=== PATIENT | male | born 1955 | race Caucasian/White ===

== ENCOUNTER 2018-07-08 08:31 | Observation (INO) | payer OTHER, SELFPAY ==
[2018-07-08 09:12] LABS: #Lymphocytes 1.1 thou/uL (1.20-3.40); #Monocytes 0.8 thou/uL (0.11-0.59); #Neutrophils 13.7 thou/uL (1.40-6.50); %Basophils 0.3 % (0.0-1.0); %Eosinophils 0.3 % (0.0-10.0); %Lymphocytes 7.2 % (21.0-51.0); %Neutrophils 87.2 % (42.0-75.0); Hemoglobin 15.7 g/dL (14.0-18.0); Mean Corpuscular HGB CONC 32.5 g/dL (32.0-36.0); Mean Corpuscular Volume 89.3 fL (78.0-98.0); Mean Platelet Volume 7.5 fL (7.4-10.4); Platelet Count 232 thou/uL (130-400); RBC Distribution Width 13.5 % (11.5-14.5); Red Blood Cell (RBC) Count 5.41 mill/uL (4.70-6.10); White Blood Cell (WBC) Count 15.7 thou/uL (4.8-10.8)
--- NOTE | 2018-07-08 09:19 | RAD ---
SINGLE VIEW OF THE CHEST: Comparison: 04-05-16 History: Chest pain that started last night with shortness of breath. FINDINGS: Single view of the chest shows a normal sized cardiomediastinal silhouette. There is no evidence of c onsolidation, mass, or pleural effusion. The bones are unremarkable. IMPRESSION: No evidence of acute cardiopulmonary disease. POS: [facility]
[2018-07-08 09:28] LABS: ALT (SGPT) 16 U/L (8-55); AST (SGOT) 15 U/L (5-34); Albumin 3.9 g/dL (3.4-4.8); Alkaline Phosphatase 93 U/L (40-150); Anion Gap 13 mmol/L (10-20); BUN (Urea Nitrogen) 10 mg/dL (8.4-25.7); Bilirubin, Total 1.8 mg/dL (0.2-1.2); Calc. Creatinine Clearance 0 mL/min (70-130); Calcium 9.4 mg/dL (7.8-10.44); Carbon Dioxide 28 mmol/L (23-31); Chloride 101 mmol/L (98-107); Estimated GFR-MDRD 84; Glucose 147 mg/dL (80-115); Potassium 4.5 mmol/L (3.5-5.1); Protein, Total 6.9 g/dL (5.8-8.1); Sodium 137 mmol/L (136-145)
[2018-07-08 09:31] LABS: CKMB 1.7 ng/mL (0-6.6); Troponin I Less than 0.010 ng/mL (< 0.028)
[2018-07-08] MEDS ORDERED: Azithromycin 250 MG TAB ONE (10:15)
[2018-07-08] MEDS ORDERED: cefTRIAXone\\ROCEPHIN 1 GM VIAL ONE (10:15)
[2018-07-08] MEDS ORDERED: Acetaminophen 325 MG TAB PO PRN (11:33)
[2018-07-08] MEDS ORDERED: Senokot 8.6 MG TAB PO PRN (11:33)
[2018-07-08] MEDS ORDERED: Nicotine 21 MG PATCH TD PRN (11:33)
[2018-07-08] MEDS ORDERED: Loperamide HCl 2 MG CAP PO PRN (11:33)
[2018-07-08] MEDS ORDERED: Chloraseptic Spray 180 ml Bottle PO PRN (11:33)
[2018-07-08] MEDS ORDERED: Ondansetron HCl/PF 4 MG/2 ML Vial IVP PRN (11:33)
[2018-07-08] MEDS ORDERED: Ondansetron ODT 4 MG TAB PO PRN (11:33)
[2018-07-08] MEDS ORDERED: Zolpidem Tartrate 5 MG TAB PO PRN (11:33)
[2018-07-08] MEDS ORDERED: Nitroglycerin 0.4 MG TAB (25 Tab Bottle) SL PRN (11:33)
[2018-07-08] MEDS ORDERED: Eucerin (Mineral Oil/Petrolatum,White) 30 gm Jar TOP PRN (11:33)
[2018-07-08] MEDS ORDERED: Loratadine 10 MG TAB PO PRN (11:33)
[2018-07-08] MEDS ORDERED: hydrALAZINE 20 MG/ML VIAL SLOW IVP PRN (11:33)
[2018-07-08] MEDS ORDERED: Sodium Chloride 0.65% Nasal 44 ML BOT EA NARE PRN (11:33)
[2018-07-08] MEDS ORDERED: Diabetic Tussin 200 MG/10 ML UDCUP PO PRN (11:33)
[2018-07-08] MEDS ORDERED: Mag-Al 1200 mg/1200 mg/30 ML UDCUP PO PRN (11:33)
[2018-07-08] MEDS ORDERED: Artificial Tears 18 DROP/0.9 ML EA EYE PRN (11:33)
[2018-07-08] MEDS ORDERED: HYDROcodone/Acetaminophen 5/325 mg Tablet PO PRN (11:33)
[2018-07-08] MEDS ORDERED: Milk Of Magnesia 30 ML UDCUP PO PRN (11:33)
[2018-07-08 11:56] LABS: Bilirubin Negative (Negative); Blood, Urine Negative (Negative); Clarity CLEAR (Clear); Glucose, Urine (Dipstick) Negative (Negative); Leukocyte Negative (Negative); Nitrite Negative (Negative); Protein, Urine (Dipstick) Negative (Neg-Trace); Specific Gravity, Urine 1.015 (1.002-1.036)
--- NOTE | 2018-07-08 11:59 | HP ---
PRIMARY CARE PHYSICIAN: DILAN [facility] REASON FOR ADMISSION: Acute bronchitis. HISTORY OF PRESENT ILLNESS: A 62-year-old male, who has underlying history of hypertension, dyslipid emia, coronary artery disease as well as ongoing tobacco abuse disorder, who presented to emergency r o for evaluation of chest pain and shortness of breath. The patient reports that yesterday at 3:00 p.m. he was having chest pain, which was radiating to back, associated with cough and shortness of b reath. He took nitroglycerin that helped his front chest discomfort, but back discomfort did not imp rove. He was having increasing cough for the last 2 days. He reports that he does have smoker's rel ated to cough on and off basis, but for last 2 days, he is coughing more. He was also having increas ing shortness of breath. He does have chronic dyspnea on exertion, but for last 2 days, he was feeli ng more short of breath. Last night when he was lying, at that time, he was having chest discomfort which was predominantly associated with cough. He was feeling comfortable in flat position, but on t he right lateral or left lateral position was making him more short of breath. He was feeling his no se was stuffed up and his sinus was stuffed up. He was requiring deep breathing because he was feeli ng air hunger. He denies any dizziness, palpitation. He was feeling subjective feverish. He denies any recent sick exposure or recent travel. He continued to smoke about 1 pack per day. Today in the emergency room, patient had chest x-ray, which showed early emphysematous changes withou t any acute process. He was found with leukocytosis. His cardiac enzyme was negative. Patient is b eiaraceli admitted for chest pain and acute bronchitis. He denies any UTI symptoms. He denies any constipation, diarrhea, melena, hematochezia. He denies a ny flu-like illness. REVIEW OF SYSTEMS: The following complete review of systems was negative, unless otherwise mentioned in the HPI or below: Constitutional: Weight loss or gain, ability to conduct usual activities. Skin: Rash, itching. Eyes: Double vision, pain. ENT/Mouth: Nose bleeding, neck stiffness, pain, tenderness. Cardiovascular: Palpitations, dyspnea on exertion, orthopnea. Respiratory: Shortness of breath, wheezing, cough, hemoptysis, fever or night sweats. Gastrointestinal: Poor appetite, abdominal pain, heartburn, nausea, vomiting, constipation, or diarr hea. Genitourinary: Urgency, frequency, dysuria, nocturia. Musculoskeletal: Pain, swelling. Neurologic/Psychiatric: Anxiety, depression. Allergy/Immunologic: Skin rash, bleeding tendency. Please see my HPI for pertinent positive and negative. All other review of system reviewed and negat winter except as mentioned in the HPI. PAST MEDICAL HISTORY: Hypertension, dyslipidemia, coronary artery disease treated with stent, tobacc o abuse disorder. PAST SURGICAL HISTORY: Cardiac catheterization with stent placement to left anterior descending. PAST PSYCHIATRIC HISTORY: Reviewed and negative. SOCIAL HISTORY: The patient drinks alcohol socially. He smokes about 1 pack per day. He was a heav y smoker before, but since cardiac catheterization and stent placement, he cut down to 1 pack per day . He is smoking for last 30 years. He denies any other illicit drug abuse. FAMILY HISTORY: No strong family history of premature stroke or cancer. Family history is strongly positive for coronary artery disease. One brother from congestive heart failure. ALLERGIES: No known drug allergy. CURRENT HOME MEDICATIONS: Plavix 75 mg p.o. daily, lisinopril 10 mg p.o. daily, Lipitor 40 mg p.o. a t bedtime, and Coreg 6.25 mg p.o. b.i.d. PHYSICAL EXAMINATION: VITAL SIGNS: On arrival, blood pressure 110/60, pulse 85, respiratory rate 18, temperature 97.5, sat uration 93% on room air, weight 77.1 kilograms. GENERAL: Patient is currently alert, awake, no obvious acute distress on room air. HEENT: Head: Normocephalic, atraumatic. Eyes: Pupils round, reactive to light. Extraocular muscl e intact. ENT: Oropharynx within normal limits. Moist mucous membranes. No oral lesion, no pharyn geal erythema, no exudate. NECK: Supple, no JVD, no thyromegaly, no carotid bruit, no jugular venous distention. LUNGS: Air entry reduced with scattered coarse breath sounds noted. No accessory muscles of respira tion in use. CARDIAC: S1 and S2, regular. No murmur, no gallop, no rub. ABDOMEN: Soft, bowel sounds present, nontender, nondistended. No organomegaly, no mass, no suprapub ic tenderness. BACK: Unremarkable, no CVA tenderness. EXTREMITIES: Upper extremity: Passive movement of all joints are normal. Lower extremities: No ed chance. Good peripheral pulsation, no calf tenderness. SKIN: No skin rash. HEMATOLOGICAL: No lymphadenopathy. PSYCHIATRIC: Normal affect. NEUROLOGIC: Nonfocal examination. SIGNIFICANT LABORATORY DATA: teletypesetter monitor showing normal sinus rhythm. EKG showing normal sinu s rhythm without any acute ischemic changes. Chest x-ray showing no acute cardiopulmonary process. CBC: WBC 15.7, hemoglobin 15.7, platelet 232 with left shift. BMP shows sodium 137, potassium 4.5, chloride 101, carbon dioxide 28, BUN 10, creatinine 0.91, glucose 147, calcium 9.4. LFT: AST 15, AL T 16, alkaline phosphatase 93, albumin 3.9, CK-MB 1.7, troponin I less than 0.010. ASSESSMENT AND PLAN: 1. Chest pain and dyspnea, most likely patient's clinical presentation consistent with acute bronchi tis that explains current patient's presentation. Given patient has history of coronary artery disea se with stent. This patient will require observation to telemetry floor. We will do serial cardiac enzymes x3 to rule out acute coronary syndrome. If cardiac enzyme remains negative, then we will not pursue further investigation while in hospital, but if troponin is abnormal, then we will consider d oing stress test if needed. We will check lipid profile for risk stratification. Healthy lifestyle measure discussed with the patient. 2. Acute bronchitis. Current patient's presentation is consistent with acute bronchitis. We will t reat him with Solu-Medrol 40 mg IV q.6 hourly, DuoNeb therapy q.6 hourly, empiric antibiotic therapy with Rocephin 1 gram and azithromycin 500 mg, Mucinex 600 mg twice daily. Upon discharge, we will pr escribe oral levofloxacin. 3. Tobacco abuse disorder. Smoking cessation counseling given. Healthy lifestyle measures discusse d with the patient. We will offer nicotine replacement while in hospital. 4. Coronary artery disease. We will continue, aspirin 81 mg p.o. daily, Plavix 75 mg p.o. daily, Co reg 6.25 mg p.o. b.i.d., lisinopril 10 mg p.o. daily. 5. Dyslipidemia. Check lipid profile tomorrow and continue Lipitor 40 mg p.o. at bedtime. 6. Hypertension, currently well controlled. Continue Coreg 6.25 mg p.o. b.i.d. and lisinopril 10 mg p.o. daily. 7. Deep venous thrombosis prophylaxis not needed because we are expecting discharge in 24 hours. 8. Gastrointestinal prophylaxis, Pepcid 20 mg p.o. b.i.d. 9. Code status: The patient is FULL CODE. Patient does not have any surrogate decision maker. 10. Disposition plan based on clinical course, likely within 24 hours. Plan of care discussed with the patient in detail. EMERGENCY ROOM COURSE: In our hospital, the patient is given Rocephin, azithromycin, DuoNeb therapy, and aspirin in the emergency room.
[2018-07-08 12:21] LABS: Troponin I Less than 0.010 ng/mL (< 0.028)
[2018-07-08 12:22] VITALS: BMI 24.3
[2018-07-08 15:28] LABS: Troponin I Less than 0.010 ng/mL (< 0.028)
[2018-07-08] MEDS: Carvedilol 6.25 MG TAB PO SCH (20:46)
[2018-07-08] MEDS: guaiFENesin ER 600 MG TAB PO SCH (20:46)
[2018-07-08] MEDS: Famotidine 20 MG TAB PO SCH (20:51)
[2018-07-08] MEDS ORDERED: Atorvastatin Calcium 40 MG TAB PO SCH (21:00)
[2018-07-09 05:03] LABS: Anion Gap 10 mmol/L (10-20); BUN (Urea Nitrogen) 13 mg/dL (8.4-25.7); Calc. Creatinine Clearance 96 mL/min (70-130); Carbon Dioxide 24 mmol/L (23-31); Cardiac Risk 2.7 (Less than 4.5); Chloride 107 mmol/L (98-107); Cholesterol 120 mg/dl (< 200 Desired); Estimated GFR-MDRD Greater than 90; Glucose 147 mg/dL (80-115); HDL Cholesterol 44 mg/dL (>60 Neg Risk); LDL Cholesterol, Calculated 68 mg/dL; Potassium 3.6 mmol/L (3.5-5.1); Sodium 137 mmol/L (136-145); Triglycerides 38 mg/dL (Less than 150)
[2018-07-09 06:22] LABS: Band 17 % (5-11); Hemoglobin 14.6 g/dL (14.0-18.0); Lymphocytes 7 % (21-51); MDiff Complete? YES; Mean Corpuscular HGB CONC 33.8 g/dL (32.0-36.0); Mean Corpuscular Hemoglobin 29.9 pg (27.0-31.0); Mean Corpuscular Volume 88.5 fL (78.0-98.0); Mean Platelet Volume 7.8 fL (7.4-10.4); Monocytes 1 % (0-10); Neutrophil 75 % (42-75); PLT Morphology Comment Appears Adequate; Platelet Count 260 thou/uL (130-400); RBC Distribution Width 13.2 % (11.5-14.5); RBC Morphology Normal; Red Blood Cell (RBC) Count 4.88 mill/uL (4.70-6.10); White Blood Cell (WBC) Count 16.4 thou/uL (4.8-10.8)
[2018-07-09 08:23] VITALS: BP 144/65; TEMP 98.3
[2018-07-09] MEDS: Famotidine 20 MG TAB PO SCH (08:29)
[2018-07-09] MEDS: Carvedilol 6.25 MG TAB PO SCH (08:29)
[2018-07-09] MEDS: guaiFENesin ER 600 MG TAB PO SCH (08:29)
[2018-07-09] MEDS ORDERED: Clopidogrel Bisulfate 75 MG TAB PO SCH (09:00)
[2018-07-09] MEDS ORDERED: Lisinopril 10 MG TAB PO SCH (09:00)
[2018-07-09] MEDS ORDERED: Azithromycin 500 MG in Sodium Chloride 0.9% 250 ML 250 ML IVPB SCH (10:00)
--- NOTE | 2018-07-09 10:50 | PDOC.PN ---
- Subjective Encounter Start Date: 07/09/18 Encounter Start Time: 07:20 -: old records requested/rev Patient seen and examined. No new complaints. No overnight events - Objective Resuscitation Status: Resuscitation Status FULL:Full Resuscitation MAR Reviewed: Yes Vital Signs & Weight: Vital Signs (12 hours) Temp Pulse Resp BP BP Pulse Ox 07/09/18 08:29 144/65 H 07/09/18 07:48 98.3 F 63 16 144/65 H 92 L 07/09/18 07:30 98.2 F 67 14 07/09/18 06:52 67 14 93 L 07/09/18 04:07 98.2 F 55 L 16 91/48 L 92 L 07/09/18 00:22 63 12 Weight Weight 160 lb 6.4 oz I&O: 07/08/18 07/09/18 07/10/18 06:59 06:59 06:59 Intake Total 840 Output Total 1900 Balance -1060 Result Diagrams: 07/09/18 04:35 07/09/18 04:35 EKG Reviewed by me: Yes Phys Exam - Physical Examination Constitutional: NAD HEENT: PERRLA, moist MMs, sclera anicteric Neck: no JVD, supple Respiratory: no wheezing, no rales, no rhonchi Cardiovascular: RRR, no significant murmur, no rub Gastrointestinal: soft, non-tender, no distention, positive bowel sounds Musculoskeletal: no edema, pulses present Neurological: non-focal, normal sensation, moves all 4 limbs Psychiatric: normal affect, A&O x 3 Skin: no rash, normal turgor Dx/Plan (1) Acute bronchitis Code(s): J20.9 - ACUTE BRONCHITIS, UNSPECIFIED Status: Acute (2) CAD (coronary artery disease) Code(s): I25.10 - ATHSCL HEART DISEASE OF [place] CORONARY ARTERY W/O ANG PCTRS Status: Chronic Comment: (3) COPD (chronic obstructive pulmonary disease) Status: Chronic (4) Dyslipidemia Code(s): E78.5 - HYPERLIPIDEMIA, UNSPECIFIED Status: Chronic Comment: (5) Hypertension Code(s): I10 - ESSENTIAL (PRIMARY) HYPERTENSION Status: Chronic (6) Tobacco abuse Code(s): Z72.0 - TOBACCO USE Status: Chronic Comment: - Plan cont current plan of care, continue antibiotics, respiratory therapy * acs ruled out * treat bronchitis * counselled to quit smoking * medication reviewed as below * symptomatic treatment * discharge to home. Review of Systems - Review of Systems ENT: negative: Ear Pain, Ear Discharge, Nose Pain, Nose Discharge, Nose Congestion, Mouth Pain, Mouth Swelling, Throat Pain, Throat Swelling, Other Respiratory: negative: Cough, Dry, Shortness of Breath, Hemoptysis, SOB with Excertion, Pleuritic Pain, Sputum, Wheezing Cardiovascular: negative: chest pain, palpitations, orthopnea, paroxysmal nocturnal dyspnea, edema, light headedness, other Gastrointestinal: negative: Nausea, Vomiting, Abdominal Pain, Diarrhea, Constipation, Melena, Hematochezia, Other Genitourinary: negative: Dysuria, Frequency, Incontinence, Hematuria, Retention , Other Musculoskeletal: negative: Neck Pain, Shoulder Pain, Arm Pain, Back Pain, Hand Pain, Leg Pain, Foot Pain, Other Skin: negative: Rash, Lesions, Umesh, Bruising, Other - Medications/Allergies Allergies/Adverse Reactions: Allergies Allergy/AdvReac Type Severity Reaction Status Date / Time No Known Allergies Allergy Verified 07/08/18 12:20 Medications: Current Medications Acetaminophen (Tylenol) 650 mg PO Q4H PRN PRN Reason: Headache/Fever or Pain Hydrocodone Bitart/Acetaminophen ([place] 5/325) 1 tab PO Q4H PRN PRN Reason: Moderate Pain (4-6) Al Hydroxide/Mg Hydroxide (Maalox) 30 ml PO Q6H PRN PRN Reason: Heartburn or Indigestion Albuterol/Ipratropium (Duoneb) 3 ml NEB [id number] [facility] Last Admin: 07/09/18 06:52 Dose: 3 ml Artificial Tears (Tears Naturale) 0 drop EA EYE PRN PRN PRN Reason: Dry Eyes Aspirin (Aspirin Chewable) 81 mg PO DAILY [facility] Last Admin: 07/09/18 08:29 Dose: 81 mg Atorvastatin Calcium (Lipitor) 40 mg PO HS [facility] Last Admin: 07/08/18 20:46 Dose: 40 mg Carvedilol (Coreg) 6.25 mg PO BID [facility] Last Admin: 07/09/18 08:29 Dose: 6.25 mg Clopidogrel Bisulfate (Plavix) 75 mg PO QAM [facility] Last Admin: 07/09/18 08:30 Dose: 75 mg Famotidine (Pepcid) 20 mg PO BID [facility] Last Admin: 07/09/18 08:29 Dose: 20 mg Guaifenesin (Mucinex) 600 mg PO Q12HR [facility] Last Admin: 07/09/18 08:29 Dose: 600 mg Guaifenesin (Robitussin Sf) 200 mg PO Q4H PRN PRN Reason: Cough Hydralazine HCl (Apresoline) 10 mg SLOW IVP Q4H PRN PRN Reason: Systolic BP > 180 Azithromycin 500 mg/ Sodium (Chloride) 250 mls @ 250 mls/hr IVPB 1000 [facility] Last Admin: 07/09/18 09:13 Dose: 250 mls Ceftriaxone Sodium 1 gm/ (Sodium Chloride) 100 mls @ 200 mls/hr IVPB 1100 [facility] Last Admin: 07/09/18 10:08 Dose: 100 mls Lisinopril (Zestril) 10 mg PO DAILY [facility] Last Admin: 07/09/18 08:29 Dose: 10 mg Loperamide HCl (Imodium) 2 mg PO PRN PRN PRN Reason: Diarrhea/Loose Stools Loratadine (Claritin) 10 mg PO DAILYPRN PRN PRN Reason: Sinus Symptoms Magnesium Hydroxide (Milk Of Magnesium) 30 ml PO DAILYPRN PRN PRN Reason: Constipation Methylprednisolone Sodium Succinate (Solu-Medrol) 40 mg IVP Q6HR [facility] Last Admin: 07/09/18 06:14 Dose: 40 mg Mineral Oil/White Petrolatum (Eucerin Cream) 0 gm TOP BIDPRN PRN PRN Reason: Dry Skin Nicotine (Nicoderm Patch) 21 mg TD Q24HR PRN PRN Reason: Smoking Cessation Nitroglycerin (Nitrostat) 0.4 mg SL Q5MIN PRN PRN Reason: Chest Pain Ondansetron HCl (Zofran Odt) 4 mg PO Q6H PRN PRN Reason: Nausea/Vomiting Ondansetron HCl (Zofran) 4 mg IVP Q6H PRN PRN Reason: Nausea/Vomiting Phenol (Chloraseptic [place] 180 Ml Bot) 0 ml PO PRN PRN PRN Reason: Sore Throat Senna (Senokot) 2 tab PO HSPRN PRN PRN Reason: Constipation Sodium Chloride ([place] Nasal [place] 0.65%) 0 ml EA NARE QIDPRN PRN PRN Reason: Nasal Congestion Zolpidem Tartrate (Ambien) 5 mg PO HSPRN PRN PRN Reason: Insomnia
[2018-07-09] MEDS ORDERED: cefTRIAXone\\ROCEPHIN 1 GM in Sodium Chloride 0.9% 100 ML IVPB SCH (11:00)
--- NOTE | 2018-07-10 14:50 | DIS ---
DATE OF ADMISSION: 07/08/2018 DATE OF DISCHARGE: 07/09/2018 PRIMARY CARE PHYSICIAN: DILAN Lugo DISCHARGE DISPOSITION: Home. PRIMARY DISCHARGE DIAGNOSIS: Acute bronchitis. SECONDARY DISCHARGE DIAGNOSES: Tobacco abuse disorder, hypertension, dyslipidemia, chronic obstructi ve pulmonary disease, coronary artery disease. PRIMARY PROCEDURE AND OPERATION: None. RADIOLOGICAL INVESTIGATION: Chest x-ray was unremarkable. SIGNIFICANT LABORATORY DATA: WBC 16.4, hemoglobin 14.6, platelet 260. Sodium 137, potassium 3.6, cr eatinine 0.81, LDL 68. Cardiac enzymes negative x3. LFT normal. Urinalysis normal. Blood culture negative. DISCHARGE MEDICATIONS: Nitroglycerin 0.4 mg sublingual p.r.n. for chest pain, Ventolin inhaler 2 puf fs q.6 hourly p.r.n., Mucinex 600 mg twice daily for 7 days, Lipitor 40 mg p.o. at bedtime, Coreg 6.2 5 mg p.o. b.i.d., Plavix 75 mg p.o. daily, Pepcid 20 mg p.o. b.i.d., Levaquin 750 mg p.o. daily for 7 days, lisinopril 10 mg p.o. daily, prednisone 20 mg p.o. b.i.d. for 7 days, Florastor 250 mg p.o. da mary. CONTRAINDICATIONS: None. CODE STATUS: FULL CODE. INPATIENT CONSULTANTS: None. ALLERGIES: No known drug allergy. DISCHARGE PLAN: Post hospital, the patient will follow up with primary care physician in 1 week. HOSPITAL COURSE: A 62-year-old male with above-mentioned medical problem who was admitted by me. Pl ease see my HPI for further detail. The patient was having upper respiratory symptoms, which was pro gressed to lower respiratory symptoms with cough, increasing shortness of breath and wheezing. He barraza d continuous smoking as well. The patient was evaluated in the emergency room, he was saturating nor mal. His chest x-ray was normal. He was diagnosed with acute bronchitis. We admitted him to medica l floor. We treated him with DuoNeb, Dulera, Mucinex, empiric antibiotic therapy and Solu-Medrol. N ext day, the patient had significant improvement in his condition. All above-mentioned medication wa s prescribed on discharge. The patient was seen and examined on the day of discharge. Please see pr lisa note from that day. Overall, the patient is medically stable for discharge.
--- NOTE | 2018-07-12 21:46 | EKG ---
Test Reason : Blood Pressure : / mmHG Vent. Rate : 084 BPM Atrial Rate : 084 BPM P-R Int : 184 ms QRS Dur : 092 ms QT Int : 364 ms P-R-T Axes : 079 071 079 degrees QTc Int : 430 ms Normal sinus rhythm Anterior infarct , age undetermined Abnormal ECG Confirmed by WILMER CONNELL M.D. ([id number]), material expeditor LUIS ANDERSON ([id number] on 07/12/2018 9:46:21 PM Referred By: Confirmed By:WILMER CONNELL M.D.
== END 2018-07-09 11:26 | disposition home or self-care (01) ==
LOC: ERS 08:31 → 2SW 12:16
PROVIDERS: ADMIT Internal Medicine; ATTEND Internal Medicine
DX: J20.9 Acute bronchitis, unspecified (principal); J44.0 Chronic obstructive pulmonary disease with (acute) lower respiratory infection; E78.5 Hyperlipidemia, unspecified; I10 Essential (primary) hypertension; I25.10 Atherosclerotic heart disease of native coronary artery without angina pectoris; F17.210 Nicotine dependence, cigarettes, uncomplicated; Z79.899 Other long term (current) drug therapy; Z79.02 Long term (current) use of antithrombotics/antiplatelets
CPT/HCPCS: 36415; 71045; 80048; 80053; 80061; 81003; 82553; 83605; 84484; 85025; 87040; 93005; 94640; 96374; 96375; 96376; G0378; J0456; J0696; J2920; J7050; J7620

== ENCOUNTER 2019-12-08 08:05 | Inpatient (IN) | payer MEDICARE, SELFPAY ==
[2019-12-08] MEDS ORDERED: Albuterol Sulfate 2.5 mg/3 ml Neb ONE (08:17)
[2019-12-08 08:27] LABS: Actual Bicarbonate (HCO3a) 30.7 mEq/L (22-28); Analyzer IN Cardio ER; Base Excess (BEa) 3.7 mEq/L (-2.0 to +3.0); CO2 Tension 54.9 mmHg (35.0-45.0); Hemoglobin (Hb) 16.3 g/dL (14.0-18.0); O2 Tension (PaO2) 64.7 mmHg (> 80.0); Potassium - ABG Lab 4.07 mmol/L (3.70-5.30); pH, Arterial 7.37 (7.35-7.45)
[2019-12-08 08:28] LABS: ALV-art Gradient 16.405 (0-20); Puncture Site LRA
--- NOTE | 2019-12-08 08:52 | RAD ---
CHEST 1 VIEW PORTABLE: Date: 12/08/2019 HISTORY: Dyspnea, difficulty breathing, cough. COMPARISON: 07/08/2018. FINDINGS: Increased bronchovascular markings bilaterally. Heart size is normal. No confluent pneumonia, overt e roshan, or pleural effusion. IMPRESSION: No acute intrathoracic disease. Stable increased bronchovascular markings. POS: [facility]
[2019-12-08] MEDS ORDERED: Magnesium 2 GM/50 ML BAG (IN WATER) ONE (08:59)
[2019-12-08] MEDS ORDERED: Dexamethasone 10 MG/ML VIAL ONE (08:59)
[2019-12-08 09:01] LABS: #Basophils 0.1 thou/uL (0.0-0.2); #Eosinphils 0.1 thou/uL (0.0-0.7); #Lymphocytes 1.3 thou/uL (1.20-3.40); #Monocytes 0.9 thou/uL (0.11-0.59); #Neutrophils 7.9 thou/uL (1.40-6.50); %Basophils 0.5 % (0.0-1.0); %Eosinophils 1.3 % (0.0-10.0); %Lymphocytes 12.3 % (21.0-51.0); %Monocytes 8.7 % (0.0-10.0); %Neutrophils 77.2 % (42.0-75.0); Hemoglobin 15.7 g/dL (14.0-18.0); Mean Corpuscular HGB CONC 32.3 g/dL (32.0-36.0); Mean Corpuscular Hemoglobin 28.9 pg (27.0-31.0); Mean Corpuscular Volume 89.6 fL (78.0-98.0); Platelet Count 264 thou/uL (130-400); RBC Distribution Width 13.1 % (11.5-14.5); Red Blood Cell (RBC) Count 5.42 mill/uL (4.70-6.10); White Blood Cell (WBC) Count 10.2 thou/uL (4.8-10.8)
[2019-12-08 09:15] LABS: ALT (SGPT) 14 U/L (8-55); AST (SGOT) 14 U/L (5-34); Albumin 3.8 g/dL (3.4-4.8); Alkaline Phosphatase 90 U/L (40-110); Anion Gap 13 mmol/L (10-20); BUN (Urea Nitrogen) 8 mg/dL (8.4-25.7); Bilirubin, Total 1.6 mg/dL (0.2-1.2); CK (CPK) 77 U/L (30-200); Calc. Creatinine Clearance 0 mL/min (70-130); Calcium 9.2 mg/dL (7.8-10.44); Carbon Dioxide 29 mmol/L (23-31); Chloride 100 mmol/L (98-107); Estimated GFR-MDRD Greater than 90; Globulin 2.5 g/dL (2.4-3.5); Glucose 98 mg/dL (80-115); Lipase 8 U/L (8-78); Potassium 4.9 mmol/L (3.5-5.1); Protein, Total 6.3 g/dL (5.8-8.1); Sodium 137 mmol/L (136-145)
[2019-12-08 10:21] LABS: Bilirubin Negative (Negative); Blood, Urine Negative (Negative); Clarity Clear (Clear); Glucose, Urine (Dipstick) Normal (Negative); Leukocyte Negative Leu/uL (Negative); Nitrite Negative (Negative); Protein, Urine (Dipstick) Negative (Neg-Trace); Urobilinogen 12 mg/dL (Less than 2)
[2019-12-08] MEDS ORDERED: Acetaminophen 325 MG TAB PO PRN (12:01)
[2019-12-08] MEDS ORDERED: HYDROcodone/Acetaminophen 5/325 mg Tablet PO PRN (12:01)
[2019-12-08] MEDS ORDERED: Senokot S 8.6-50 MG TAB PO PRN (12:01)
[2019-12-08] MEDS ORDERED: Bisacodyl 10 MG SUPP PR PRN (12:01)
[2019-12-08] MEDS ORDERED: Guaifenesin DM 100-10/5 ML UDCUP PO PRN (12:01)
[2019-12-08] MEDS ORDERED: Ondansetron PF 4 MG/2 ML Vial IVP PRN (12:01)
[2019-12-08] MEDS ORDERED: Sodium Chloride 0.9% 1,000 ML IV SCH (12:01)
[2019-12-08 13:33] VITALS: BMI 22.0
[2019-12-08] MEDS: methylPREDNISolone Sod Succ 40 MG VIAL IVP SCH ×2 (14:26→18:08)
--- NOTE | 2019-12-08 16:57 | HP ---
REASON FOR ADMISSION: Acute respiratory failure with hypoxia, acute COPD exacerbation. HISTORY OF PRESENTING ILLNESS: The patient gives history of having cough, cold , and shortness of breath. He has cough with expectoration of clear sputum. All of these symptoms were there for 2 weeks. He has been having some sinus drainage as well , which is stimulating his cough badly. No fever at home. No complaints of palpitations or PND. Has some chest discomfort due to coughing. PAST MEDICAL AND SURGICAL HISTORY: History of coronary artery disease with prior stent placed 4 years back, hypertension, dyslipidemia. No other surgeries. CURRENT MEDICATIONS: The patient is on; 1. Lisinopril 10 mg daily. 2. Atorvastatin 40 mg p.o. at bedtime. 3. Coreg 6.25 mg twice daily. ALLERGIES: THE PATIENT IS ALLERGIC TO , BUT HE IS NOT ALLERGIC TO PENICILLINS. PERSONAL HISTORY: The patient smokes 1 pack a day. He states he has come down from 2 packs to 1 pack. He has smoked for nearly 40 years or more. Does not abuse alcohol or drugs. Lives with his . FAMILY HISTORY: Both parents in their 60s. Mother had history of coronary artery disease and CHF. Father from complications of lung collapse and associated issues. CODE STATUS: Full. Power of litigation attorney is his . REVIEW OF SYSTEMS: CONSTITUTIONAL: Negative for weight loss or gain, ability to conduct usual activities. SKIN: Negative for rash, itching. EYES: Negative for double vision, pain. ENT/MOUTH: Negative for nose bleeding, neck stiffness, pain, tenderness. CARDIOVASCULAR: Negative for palpitations, dyspnea on exertion, orthopnea. RESPIRATORY: Negative for shortness of breath, wheezing, cough, hemoptysis, fever or night sweats. GASTROINTESTINAL: Negative for poor appetite, abdominal pain, heartburn, nausea , vomiting, constipation, or diarrhea. GENITOURINARY: Negative for urgency, frequency, dysuria, nocturia. MUSCULOSKELETAL: Negative for pain, swelling. NEUROLOGIC/PSYCHIATRIC: Negative for anxiety, depression. ALLERGY/IMMUNOLOGIC: Negative for skin rash, bleeding tendency. PHYSICAL EXAMINATION: GENERAL: The patient is a 64-year-old male who is currently not in any acute distress. VITAL SIGNS: Blood pressure 186/80 on arrival, pulse 74 per minute, respiratory rate 24 per minute, temperature 98.5 degrees Fahrenheit, saturating 94% on 2 L nasal cannula. NECK: Supple. No elevated JVD. HEENT: Eyes; extraocular muscles intact. Pupils reacting to light. Oral cavity; mucous membranes are moist. No exudates or congestion. CARDIOVASCULAR SYSTEM: S1 and S2 heard. Regular rhythm. RESPIRATORY SYSTEM: Air entry 1+ bilateral. Scattered wheezes plus bilateral. ABDOMEN: Soft. Bowel sounds heard. No tenderness, rigidity, or guarding. EXTREMITIES: No peripheral edema or calf tenderness. VASCULAR SYSTEM: Peripheral pulses 1+ bilateral. No ischemic ulcerations or gangrene. CENTRAL NERVOUS SYSTEM: No gross focal deficits noted. The patient is alert, awake, and oriented well. PSYCHIATRIC SYSTEM: The patient's mood is euthymic. No hallucinations or delusions. LABORATORY DATA: Chest x-ray done shows no acute infiltrate. Influenza A and B antigens are negative. White count of 10, H and H of 15 and 48, platelet count 264 with 77% neutrophils, MCV is 89. Blood gas done shows a pH of 7.37, pCO2 of 54 , PO2 of 64, bicarb is 30 on the blood gas. Serum bicarb 29, BUN 8, creatinine 0.7. AST, ALT, and alkaline phosphatase within normal limits. First set of troponin is negative. BNP is 43. EKG done shows normal sinus rhythm at 77 beats per minute. There is poor R-wave progression seen. CLINICAL IMPRESSION AND PLAN: The patient will be admitted to medical floor for acute chronic obstructive pulmonary disease exacerbation with acute respiratory failure with hypercarbia and hypoxia. He is currently saturating well on 2 L nasal cannula. He will be on DuoNeb q.6 hourly, Solu-Medrol 40 mg IV q.6 hourly, and empiric Ceftin 250 mg twice daily. We will continue aspirin and Lipitor as before. We will also continue his Coreg and lisinopril as before. He will be given a liter of normal saline at 100 mL per hour to better help expectorate sputum. We will also consult Dr. Sena for Pulmonology. The patient states his monthly premium for Medicare is 500 and has not applied for the same. The patient likely will need to speak to Financial Services representatives here to help him apply for insurance. He is 64 years of age and states he has worked all his life. Job ID: [id number] [facility]
[2019-12-08] MEDS: Carvedilol 6.25 MG TAB PO SCH (18:06)
[2019-12-08] MEDS: Arformoterol 15 MCG/2 ML NEB NEB SCH (18:14)
[2019-12-08] MEDS: Famotidine 20 MG TAB PO SCH (20:03)
[2019-12-08] MEDS: Cefuroxime Axetil 250 MG TAB PO SCH (20:04)
[2019-12-08] MEDS: Atorvastatin Calcium 40 MG TAB PO SCH (20:04)
[2019-12-08] MEDS: guaiFENesin ER 600 MG TAB PO SCH (20:04)
[2019-12-09] MEDS: methylPREDNISolone Sod Succ 40 MG VIAL IVP SCH ×4 (00:31→17:12)
[2019-12-09 06:16] LABS: #Lymphocytes 0.9 thou/uL (1.20-3.40); #Monocytes 0.4 thou/uL (0.11-0.59); #Neutrophils 12.7 thou/uL (1.40-6.50); %Basophils 0.1 % (0.0-1.0); %Lymphocytes 6.2 % (21.0-51.0); %Monocytes 2.9 % (0.0-10.0); %Neutrophils 90.8 % (42.0-75.0); Hemoglobin 14.6 g/dL (14.0-18.0); Mean Corpuscular HGB CONC 32.8 g/dL (32.0-36.0); Mean Corpuscular Hemoglobin 29.4 pg (27.0-31.0); Mean Corpuscular Volume 89.7 fL (78.0-98.0); Mean Platelet Volume 7.9 fL (7.4-10.4); Platelet Count 259 thou/uL (130-400); RBC Distribution Width 12.9 % (11.5-14.5); Red Blood Cell (RBC) Count 4.97 mill/uL (4.70-6.10)
[2019-12-09 06:30] LABS: Anion Gap 8 mmol/L (10-20); BUN (Urea Nitrogen) 13 mg/dL (8.4-25.7); Calc. Creatinine Clearance 90 mL/min (70-130); Calcium 8.8 mg/dL (7.8-10.44); Carbon Dioxide 25 mmol/L (23-31); Chloride 106 mmol/L (98-107); Estimated GFR-MDRD Greater than 90; Glucose 153 mg/dL (80-115); Potassium 4.3 mmol/L (3.5-5.1); Sodium 135 mmol/L (136-145)
[2019-12-09] MEDS: Arformoterol 15 MCG/2 ML NEB NEB SCH ×2 (07:28→17:57)
[2019-12-09] MEDS: Cefuroxime Axetil 250 MG TAB PO SCH ×2 (09:00→21:11)
[2019-12-09] MEDS: Enoxaparin Sodium 40 MG/0.4 ML SYRINGE SC SCH (09:00)
[2019-12-09] MEDS: guaiFENesin ER 600 MG TAB PO SCH ×2 (09:00→21:11)
[2019-12-09] MEDS: Carvedilol 6.25 MG TAB PO SCH ×2 (09:00→17:13)
[2019-12-09] MEDS: Famotidine 20 MG TAB PO SCH ×2 (09:01→21:11)
[2019-12-09] MEDS: Lisinopril 10 MG TAB PO SCH (09:01)
--- NOTE | 2019-12-09 12:47 | CON ---
DATE OF CONSULTATION: HISTORY OF PRESENT ILLNESS: Dejon Pemberton is a 64-year-old male, followed by Naila Oconnor. 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 He denies having shortness of breath prior to this, and has never had any type of episodes that would lead to hospitalization. 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 He was told when he was young man that he had asthma. He was premature and had a pneumonia when he was young as well. He presented with complaints of two weeks of cough, chest congestion, and shortness of breath. He says he is feeling better. PAST MEDICAL HISTORY: Remarkable for; 1. Coronary artery stenting. 2. Hypertension. 3. Lipid disorder. CURRENT MEDICATIONS: Prior to admission, he was on; 1. Lisinopril. 2. Atorvastatin. 3. Coreg. SOCIAL HISTORY: He is a pack-a-day smoker. He used to smoke two packs a day. He is not a daily drinker. ALLERGIES: HE REPORTS NO DRUG ALLERGIES. FAMILY HISTORY: Negative for lung disease in early age. REVIEW OF SYSTEMS: Ten-point review of systems otherwise negative. PHYSICAL EXAMINATION: VITAL SIGNS: He is afebrile. Heart rate 80, respiratory rate 18, blood pressure 157/71, oximetry is 96 on room air. HEAD AND NECK: Unremarkable. He has long zepeda. NECK: Without lymphadenopathy. LUNGS: Clear at this time. HEART: Regular rhythm. ABDOMEN: Soft and nontender. EXTREMITIES: Without clubbing, cyanosis, or edema. LABORATORY DATA: White count 14, hemoglobin 14.6, platelets 259. Sodium 135, potassium 4.3, chloride 106, bicarb 25, BUN 13, creatinine 0.76. Blood gas done yesterday morning; pH 7.37, CO2 is 54, PO2 is 64. IMPRESSION: Asthma exacerbation with possible coexisting chronic obstructive pulmonary disease. His symptom complex leads me to believe that this is more likely reactive airways and asthmatic bronchitis than it is emphysema. He certainly does not have a history suggestive of chronic bronchitis. Once he is recovered, pulmonary function tests could be done to re-evaluate his lung function. At this point in time, he will need steroid taper over 10 to 14 days as well as inhalers when he is discharged. He maybe a candidate to go home tomorrow. He is cleared considerably, so his steroids can be switched to p.o. first thing in the morning. Job ID: [id number]
--- NOTE | 2019-12-09 13:17 | PDOC.HOSPP ---
- Subjective Encounter Date: 12/09/19 Encounter Time: 11:00 Subjective: breathing better, no wheezing now is amb in hallway - Objective Vital Signs & Weight: Vital Signs (12 hours) Temp Pulse Resp BP BP Pulse Ox 12/09/19 12:00 97.8 F 71 20 156/78 H 96 12/09/19 09:01 157/71 H 12/09/19 09:00 157/71 H 12/09/19 08:10 97.8 F 83 141/63 H 96 12/09/19 07:28 78 18 97 12/09/19 04:15 97.7 F 64 18 122/56 L 96 12/09/19 01:29 97 Weight Weight 144 lb 12.8 oz I&O: 12/08/19 12/09/19 12/10/19 06:59 06:59 06:59 Intake Total 800 Balance 800 Result Diagrams: 12/09/19 05:42 12/09/19 05:42 Hospitalist ROS - Medication Medications: Active Medications Generic Name Dose Route Start Last Admin Trade Name Freq PRN Reason Stop Dose Admin Albuterol/Ipratropium 3 ml 12/08/19 13:00 12/09/19 07:28 Duoneb NEB 3 ml [id number] MONSE Administration Arformoterol Tartrate 15 mcg 12/08/19 18:30 12/09/19 07:28 Brovana NEB Not Given BID-RT MONSE Atorvastatin Calcium 40 mg 12/08/19 21:00 12/08/19 20:04 Lipitor PO 40 mg HS MONSE Administration Carvedilol 6.25 mg 12/08/19 17:00 12/09/19 09:00 Coreg PO 6.25 mg BID-WM MONSE Administration Cefuroxime Axetil 250 mg 12/08/19 21:00 12/09/19 09:00 Ceftin PO 250 mg BID MONSE Administration Enoxaparin Sodium 40 mg 12/09/19 09:00 12/09/19 09:00 Lovenox SC 40 mg 0900 MONSE Administration Famotidine 20 mg 12/08/19 21:00 12/09/19 09:01 Pepcid PO 20 mg BID MONSE Administration Guaifenesin 600 mg 12/08/19 21:00 12/09/19 09:00 Mucinex PO 600 mg Q12HR MONSE Administration Influenza Virus Vaccine 180 mcg 12/09/19 13:45 12/09/19 11:59 Fluzone High-Dose 2019- Syr IM 12/09/19 13:46 Not Given .ONCE ONE Lisinopril 10 mg 12/09/19 09:00 12/09/19 09:01 Zestril PO Not Given DAILY MONSE Methylprednisolone Sodium Succinate 40 mg 12/08/19 12:00 12/09/19 12:00 Solu-Medrol IVP 12/09/19 23:59 40 mg Q6HR MONSE Administration - Exam General Appearance: awake alert Eye: PERRL, anicteric sclera ENT: no oropharyngeal lesions, moist mucosa Neck: supple, no JVD Heart: RRR, no murmur Respiratory: no wheezes, no rales, rhonchi Gastrointestinal: soft, non-tender, non-distended, normal bowel sounds Extremities: no cyanosis, no edema Neurological: cranial nerve grossly intact, no focal deficits Psychiatric: normal affect, A&O x 3 Hosp A/P (1) COPD exacerbation Code(s): J44.1 - CHRONIC OBSTRUCTIVE PULMONARY DISEASE W (ACUTE) EXACERBATION Status: Acute (2) CAD (coronary artery disease) Code(s): I25.10 - ATHSCL HEART DISEASE OF [place] CORONARY ARTERY W/O ANG PCTRS Status: Chronic Qualifiers: Coronary Disease-Associated Artery/Lesion type: [place] artery [place] vs. transplanted heart: [place] heart Associated angina: without angina Qualified Code(s): I25.10 - Atherosclerotic heart disease of [place] coronary artery without angina pectoris (3) Dyslipidemia Code(s): E78.5 - HYPERLIPIDEMIA, UNSPECIFIED Status: Chronic (4) Hypertension Code(s): I10 - ESSENTIAL (PRIMARY) HYPERTENSION Status: Chronic Qualifiers: Hypertension type: essential hypertension Qualified Code(s): I10 - Essential (primary) hypertension (5) Tobacco abuse Code(s): Z72.0 - TOBACCO USE Status: Chronic - Plan hemostable is on steroids, ceftin, nebs to ambulate as tolerated dc plan in am
[2019-12-09] MEDS ORDERED: FLU VACC TS2019-20(65YR UP)/PF 180 MCG/0.5 ML SYRINGE IM ONE (13:45)
[2019-12-09] MEDS: Atorvastatin Calcium 40 MG TAB PO SCH (21:11)
[2019-12-10] MEDS: methylPREDNISolone Sod Succ 40 MG VIAL IVP SCH (00:50)
[2019-12-10] MEDS: Arformoterol 15 MCG/2 ML NEB NEB SCH (07:08)
[2019-12-10] MEDS: Carvedilol 6.25 MG TAB PO SCH (07:25)
[2019-12-10] MEDS: Enoxaparin Sodium 40 MG/0.4 ML SYRINGE SC SCH (07:25)
[2019-12-10] MEDS: Famotidine 20 MG TAB PO SCH (07:27)
[2019-12-10] MEDS: guaiFENesin ER 600 MG TAB PO SCH (07:27)
[2019-12-10] MEDS: Lisinopril 10 MG TAB PO SCH (07:27)
[2019-12-10] MEDS: Cefuroxime Axetil 250 MG TAB PO SCH (07:27)
[2019-12-10] MEDS ORDERED: predniSONE 20 MG TAB PO SCH (08:00)
[2019-12-10 12:04] VITALS: BP 135/62; TEMP 97.5
--- NOTE | 2019-12-10 17:05 | DIS ---
DATE OF ADMISSION: 12/08/2019 DATE OF DISCHARGE: 12/10/2019 DISCHARGE DISPOSITION: To home. PRIMARY DISCHARGE DIAGNOSIS: Chronic obstructive pulmonary disease exacerbation. SECONDARY DISCHARGE DIAGNOSES: Coronary artery disease, dyslipidemia, hypertension, tobacco abuse. PROCEDURES DONE DURING HOSPITALIZATION: Chest x-ray done showed no acute infiltrate. H and H 14 and 44, platelet count 259. Initial blood gas showed a pH of 7.37, pCO2 of 54, PO2 of 64, BUN 13, creatinine 0.7. Troponin x1 negative. BNP 43. Blood cultures x2, no growth. Influenza A and B antigens are negative. INPATIENT CONSULT: Dr. Sena for Pulmonology. DISCHARGE PLAN: The patient to follow up with his primary care physician, nurse practitioner, Naila Nimesh. BRIEF COURSE DURING HOSPITALIZATION: The patient initially came in with complaints of shortness of breath and cough along with wheezing. He had significant history of smoking history and currently smoking around one pack a day as well. He was admitted for COPD exacerbation. He was on steroids, nebulization, and empiric Ceftin was given for him. He has had consultation with Dr. Sena as well. The patient has done remarkably well during his brief stay here. He is ambulating and eating well prior to discharge. Mr. Pemberton is planning to get his Medicare part A and part B insurance shortly and will then try to obtain long-acting inhalers along with steroid inhalers and he says currently he cannot afford them. Please note, I have seen and examined the patient on the day of discharge. Job ID: [id number]
--- NOTE | 2019-12-11 07:01 | PQF ---
MOSES MONACO VINAYA KUMAR MD [id number] CLINICAL DOCUMENTATION CLARIFICATION FORM: POST DISCHARGE Addendum to original discharge summary date: ____ Late entry note date: __ DATE:12/11/2019 ATTN: Jeremias Jorgensen Please exercise your independent, professional judgment in responding to the clarification form. Clinical indicators are provided on the bottom of this form for your review Please check appropriate box(s) to clarify if the following diagnosis has been ruled in or ruled out: Acute respiratory failure [ x ] Ruled in diagnosis [ ] Continue to treat [ x] Resolved [ ] Ruled out diagnosis [ ] Cannot rule out diagnosis [ ] Other diagnosis [ ] Unable to determine For continuity of documentation, please document condition throughout progress notes and discharge summary. Thank You. CLINICAL INDICATORS - SIGNS / SYMPTOMS / LABS Blood Gas 12/08 pH 7.37, pCO2 54.9, pO2 64.7. O2 sat 92.5, Base Excess 3.7, Oxyhemoglobin 89.2 ED note p1 12/08 Vital signs: BP 186/81, Pulse 74, Resp 20, Temp 98.5, O2sat 95 % on Room air H&P p1 12/08 Dr Cain Reason for admission: Acute respiratory failure with hypoxia, acute COPD exacerbation H&P p1 12/08 Dr Cain pt gives history of having cough, cold and SOB. All of these symptoms were there for 2 weeks H&P p1 12/08 Dr Cain He has been having some sinus drainage as well, which is stimulating his cough badly RISK FACTORS H&P p1 12/08 64 year-old Male H&P p1 2 Patient smokes 1 pack a day H&P p2 2 COPD exacerbation TREATMENTS JAN 03 Albuterol Sulfate 2.5 mg Neb MAR 12/08 DuoNeb 3ml Neb JAN 03 Brovana 15mcg Neb JAN 03 Decadron 10mg JAN 03 Mucinex 600mg po Respiratory panel 12/08 Oxygen 2L via nasal cannula Pulmonary consult 12/09 Samuel Wall (This form is maintained as a part of the permanent medical record) 2014 [employer]. All Rights Reserved [email or web address] [email or web address]
== END 2019-12-10 13:38 | disposition home or self-care (01) | DRG 189 ==
LOC: ERS 08:05 → ERHOLD 09:53 → T4-B 13:18
PROVIDERS: ADMIT Internal Medicine; ATTEND Internal Medicine
DX: J96.01 Acute respiratory failure with hypoxia (principal); J44.1 Chronic obstructive pulmonary disease with (acute) exacerbation; I25.10 Atherosclerotic heart disease of native coronary artery without angina pectoris; I10 Essential (primary) hypertension; F17.200 Nicotine dependence, unspecified, uncomplicated; E78.5 Hyperlipidemia, unspecified; Z79.899 Other long term (current) drug therapy; Z88.0 Allergy status to penicillin; Z28.21 Immunization not carried out because of patient refusal; Z95.5 Presence of coronary angioplasty implant and graft
CPT/HCPCS: 36415; 71045; 80048; 80053; 81003; 82550; 82805; 83605; 83690; 83880; 84484; 85025; 87040; 87804; 93005; 94640; 94644; 96365; 96367; 96375; J1100; J1650; J1956; J2920; J3475; J7512; J7611; J7620

== ENCOUNTER 2020-12-28 14:22 | Observation (INO) | payer MEDICARE ==
--- NOTE | 2020-12-28 14:47 | RAD ---
XR Chest 1 View Portable HISTORY: Vomiting COMPARISON: 12/08/2019 FINDINGS: The heart size is normal. The lungs are well expanded without focal areas of consolidation, pneumothorax or pleural effusions. IMPRESSION: No radiographic evidence of acute cardiopulmonary process.
[2020-12-28 15:12] LABS: #Basophils 0.1 thou/uL (0.0-0.2); #Eosinphils 0.1 thou/uL (0.0-0.7); #Lymphocytes 1.2 thou/uL (1.20-3.40); #Monocytes 0.4 thou/uL (0.11-0.59); #Neutrophils 4.2 thou/uL (1.40-6.50); %Basophils 1.2 % (0.0-1.0); %Eosinophils 1.3 % (0.0-10.0); %Lymphocytes 19.9 % (21.0-51.0); %Monocytes 6.9 % (0.0-10.0); %Neutrophils 70.6 % (42.0-75.0); Hemoglobin 15.7 g/dL (14.0-18.0); Mean Corpuscular Hemoglobin 29.2 pg (27.0-31.0); Mean Corpuscular Volume 88.5 fL (78.0-98.0); Platelet Count 225 thou/uL (130-400); RBC Distribution Width 12.8 % (11.5-14.5); Red Blood Cell (RBC) Count 5.36 mill/uL (4.70-6.10)
[2020-12-28] MEDS ORDERED: Diazepam 5 MG TAB ONE (15:17)
[2020-12-28] MEDS ORDERED: Meclizine HCl 25 MG TAB ONE (15:17)
[2020-12-28 15:39] LABS: ALT (SGPT) 15 U/L (8-55); AST (SGOT) 17 U/L (5-34); Albumin 3.7 g/dL (3.4-4.8); Alkaline Phosphatase 80 U/L (40-110); Anion Gap 9 mmol/L (10-20); BUN (Urea Nitrogen) 14 mg/dL (8.4-25.7); Bilirubin, Total 0.9 mg/dL (0.2-1.2); Calc. Creatinine Clearance 0 mL/min (70-130); Calcium 8.8 mg/dL (7.8-10.44); Carbon Dioxide 32 mmol/L (23-31); Chloride 102 mmol/L (98-107); Globulin 2.5 g/dL (2.4-3.5); Glucose 123 mg/dL (80-115); Potassium 4.5 mmol/L (3.5-5.1); Protein, Total 6.2 g/dL (5.8-8.1); Sodium 138 mmol/L (136-145)
[2020-12-28] MEDS ORDERED: Ondansetron PF 4 MG/2 ML Vial ONE (16:05)
[2020-12-28] MEDS ORDERED: Promethazine HCl 25 MG/ML VIAL ONE (17:21)
[2020-12-28] MEDS ORDERED: Promethazine HCl 12.5 MG in Sodium Chloride 0.9% 50 ML IVPB SCH (17:30)
[2020-12-28] MEDS ORDERED: hydrALAZINE 20 MG/ML VIAL SLOW IVP PRN (17:55)
[2020-12-28] MEDS ORDERED: Ondansetron PF 4 MG/2 ML Vial IVP PRN (17:58)
[2020-12-28] MEDS ORDERED: Albuterol Sulfate 2.5 mg/3 ml Neb NEB PRN (17:59)
--- NOTE | 2020-12-28 18:01 | CT ---
CT Brain WO Con: 12/28/2020 5:40 PM CLINICAL HISTORY: Dizziness. IMAGING TECHNIQUE: Multiple CT images were obtained of the brain without IV contrast. COMPARISON: None. FINDINGS: BRAIN: Evidence of acute infarct: None. Evidence of chronic ischemic change:There is mild chronic small vessel white matter ischemic change. Evidence of intracranial hemorrhage: None. Evidence of brain volume loss:None. Evidence of midline shift: Third ventricle and septum pellucidum are midline. Ventricles: There is small calcification seen involving the choroid of the fourth ventricle, third v entricle and lateral ventricles. SKULL: Intact. VISUALIZED PARANASAL SINUSES: Clear. MASTOID AIR CELLS: Clear. EXTRACRANIAL SOFT TISSUES: Normal. IMPRESSION: No acute intracranial abnormality.
--- NOTE | 2020-12-28 18:03 | PDOC.HHP ---
Hospitalist JANNA Vertigo History of Present Illness: Patient is a pleasant 65-year-old gentleman who was seen in the emergency room on December 28, 2020. He reports that he woke up this morning and tried to turn his alarm off. At th at time he felt severe sensation of room spinning. He also reports getting out of bed and making it to the door for feeling nauseous and vomiting. Since then, he has had multiple episodes of nausea and vomiting. He also had multiple episodes of the sensation of room spinning. He reports that it usually happens when he looks up suddenly. He has been unable to tolerate any oral intake. He therefore presented to the emergency room. He denies any chest pain, shortness of breath, fevers or chills. He denies any abdominal pain. ED Course: BP: 158/86, Pulse: 56, Resp: 18, Temp: 97.4 (Oral), Pain: 0, O2 sat: 100 on (Room Air), Time: 12/28/2020 16:57. Allergies/Adverse Reactions: Allergy/AdvReac Type Severity Reaction Status Date / Time No Known Allergies Allergy Verified 07/08/18 12:20 Home Medications: Medication Instructions Recorded Confirmed Type Atorvastatin Calcium 40 mg PO HS 12/08/19 12/08/19 History Carvedilol [Coreg] 6.25 mg PO BID 12/08/19 12/08/19 History Lisinopril [Zestril] 10 mg PO HS 12/08/19 12/08/19 History Albuterol Sulfate HFA (OR) 2 puff INH Q6H PRN #1 inh 12/10/19 Rx [Proventil Hfa (or)] predniSONE 40 mg PO QAM-WM #3 tab 12/10/19 Rx Past History: Past medical history: Dyslipidemia, hypertension, coronary artery disease status post PCI with coronary stent. Surgical history: None Social history: Patient smokes half to 1 pack of cigarettes a day. He reports rare alcohol use. Denies any recreational drug use. Family history: Atrial fibrillation in his mother Hospitalist JANNA CHAVEZ Constitutional: denies: fever, chills, sweats, weakness, malaise Cardiovascular: denies: chest pain, palpitations, orthopnea, paroxysmal noc. dyspnea, edema, light headedness Gastrointestinal: reports: nausea, vomiting Genitourinary: denies: dysuria, frequency, incontinence, hematuria, retention Musculoskeletal: denies: neck pain, shoulder pain, arm pain, back pain, hand pain, leg pain, foot pain Neurological: reports: other (Vertigo) All other systems reviewed; all pertinent +/- noted in HPI/Subj Hospitalist Exam General Appearance: awake alert Eye: anicteric sclera ENT: no oropharyngeal lesions, moist mucosa ENT - other findings: Missing several teeth Neck: supple, symmetric, no thyromegaly, no lymphadenopathy Heart: RRR, no gallops, no rubs Respiratory: CTAB, no wheezes, no rales, no ronchi, normal chest expansion Gastrointestinal: soft, non-tender, non-distended, normal bowel sounds Skin: no rashes Neurological: cranial nerve grossly intact, normal sensation to touch, no weakn ess, no focal deficits Neurological - other findings: No nystagmus Psychiatric: normal affect, normal behavior, A&O x 3 Hospitalist Results Result Diagrams: 12/28/20 15:03 12/28/20 15:03 Lab results: Laboratory Last Values WBC 6.0 thou/uL (4.8-10.8) 12/28/20 15:03 RBC 5.36 mill/uL (4.70-6.10) 12/28/20 15:03 Hgb 15.7 g/dL (14.0-18.0) 12/28/20 15:03 Hct 47.4 % (42.0-52.0) 12/28/20 15:03 MCV 88.5 fL (78.0-98.0) 12/28/20 15:03 MCH 29.2 pg (27.0-31.0) 12/28/20 15:03 MCHC 33.0 g/dL (32.0-36.0) 12/28/20 15:03 RDW 12.8 % (11.5-14.5) 12/28/20 15:03 Plt Count 225 thou/uL (130-400) 12/28/20 15:03 MPV 8.0 fL (7.4-10.4) 12/28/20 15:03 Neutrophils % 70.6 % (42.0-75.0) 12/28/20 15:03 Lymphocytes % 19.9 % (21.0-51.0) L 12/28/20 15:03 Monocytes % 6.9 % (0.0-10.0) 12/28/20 15:03 Eosinophils % 1.3 % (0.0-10.0) 12/28/20 15:03 Basophils % 1.2 % (0.0-1.0) H 12/28/20 15:03 Neutrophils # 4.2 thou/uL (1.40-6.50) 12/28/20 15:03 Lymphocytes # 1.2 thou/uL (1.20-3.40) 12/28/20 15:03 Monocytes # 0.4 thou/uL (0.11-0.59) 12/28/20 15:03 Eosinophils # 0.1 thou/uL (0.0-0.7) 12/28/20 15:03 Basophils # 0.1 thou/uL (0.0-0.2) 12/28/20 15:03 Sodium 138 mmol/L (136-145) 12/28/20 15:03 Potassium 4.5 mmol/L (3.5-5.1) 12/28/20 15:03 Chloride 102 mmol/L (98-107) 12/28/20 15:03 Carbon Dioxide 32 mmol/L (23-31) H 12/28/20 15:03 Anion Gap 9 mmol/L (10-20) L 12/28/20 15:03 BUN 14 mg/dL (8.4-25.7) 12/28/20 15:03 Creatinine 0.90 mg/dL (0.7-1.3) 12/28/20 15:03 Estimated GFR (MDRD) 84 12/28/20 15:03 Glucose 123 mg/dL (80-115) H 12/28/20 15:03 Calcium 8.8 mg/dL (7.8-10.44) 12/28/20 15:03 Total Bilirubin 0.9 mg/dL (0.2-1.2) 12/28/20 15:03 AST 17 U/L (5-34) 12/28/20 15:03 ALT 15 U/L (8-55) 12/28/20 15:03 Alkaline Phosphatase 80 U/L (40-110) 12/28/20 15:03 Troponin I Less than 0.010 ng/mL (< 0.028) 12/28/20 15:03 Serum Total Protein 6.2 g/dL (5.8-8.1) 12/28/20 15:03 Albumin 3.7 g/dL (3.4-4.8) 12/28/20 15:03 Globulin 2.5 g/dL (2.4-3.5) 12/28/20 15:03 Albumin/Globulin Ratio 1.5 g/dL (1.2-2.2) 12/28/20 15:03 EKG Status: image reviewed by me Additional Comments: EKG shows normal sinus rhythm, no ST changes to suggest an acute coronary syndrome. Chest x-ray Status: image reviewed by me Additional Comments: XR Chest 1 View Portable HISTORY: Vomiting COMPARISON: 12/08/2019 FINDINGS: The heart size is normal. The lungs are well expanded without focal areas of consolidation, pneumothorax or pleural effusions. IMPRESSION: No radiographic evidence of acute cardiopulmonary process. Hospitalist H&P A/P (1) Vertigo Code(s): R42 - DIZZINESS AND GIDDINESS Status: Acute (2) CAD (coronary artery disease) Code(s): I25.10 - ATHSCL HEART DISEASE OF [place] CORONARY ARTERY W/O ANG PCTRS Status: Chronic Qualifiers: Coronary Disease-Associated Artery/Lesion type: [place] artery [place] vs. transplanted heart: [place] heart Associated angina: without angina Qualified Code(s): I25.10 - Atherosclerotic heart disease of [place] coronary artery without angina pectoris (3) Dyslipidemia Code(s): E78.5 - HYPERLIPIDEMIA, UNSPECIFIED Status: Chronic (4) Hypertension Code(s): I10 - ESSENTIAL (PRIMARY) HYPERTENSION Status: Chronic Qualifiers: Hypertension type: essential hypertension Qualified Code(s): I10 - Essential (primary) hypertension (5) Tobacco abuse Code(s): Z72.0 - TOBACCO USE Status: Chronic Plan: By description, patient's vertigo appears to be peripheral. However, he has shown minimal response to meclizine. Also, he does have significant risk factors for stroke, and I cannot completely rule out a posterior circulation stroke at this point. He will be admitted to the hospital for further management. I will start him on scheduled meclizine. I will also start him on aspirin. Noncontrast CT scan of the brain is pending. I will order MRI of the brain, 2D echocardiogram and carotid Dopplers. We will check fasting lipid profile. Will consult neurology for opinion and help with further management. Resume statin. Resume lisinopril and carvedilol, monitor vital signs and titrate antihypertensives as needed. Patient has been counseled regarding tobacco cessation, start nicotine replacement therapy. Level of risk: High Level of complexity: High Estimated length of stay in the hospital: Less than 2 midnights Primary care provider: Naila Oconnor
[2020-12-28] MEDS ORDERED: Aspirin Chewable 81 MG TAB ONE (18:09)
[2020-12-28] MEDS ORDERED: Atorvastatin Calcium 40 MG TAB PO SCH (21:00)
[2020-12-28] MEDS ORDERED: Lisinopril 10 MG TAB PO SCH (21:00)
--- NOTE | 2020-12-28 22:20 | ULT ---
BILATERAL CAROTID DUPLEX ULTRASOUND: HISTORY: Vertigo and nausea vomiting TECHNIQUE: Grayscale, color-flow and spectral Doppler ultrasound imaging of the extracranial carotid artery syst ems and vertebral arteries was performed bilaterally. FINDINGS: There is intimal thickening of the common carotid arteries with mild partially calcified atherosclero tic plaque involving the carotid bulbs. The peak systolic velocity in the right ICA measures 65.1 cm/s. The peak systolic velocity in the ri ght CCA measures 108.6 cm/s. The peak systolic velocity in the left ICA measures 84.7 cm/s. The peak systolic velocity in the l eft CCA measures 107.9 cm/s. The right IC/CC ratio is0.60. The left IC/CC ratio is 0.78. Vertebral flow: antegrade, bilaterally. . IMPRESSION: No hemodynamically significant stenosis of Both ICAs.
[2020-12-28] MEDS: Meclizine HCl 25 MG TAB PO SCH (22:58)
[2020-12-28] MEDS: Carvedilol 6.25 MG TAB PO SCH (22:58)
[2020-12-28 23:14] VITALS: BMI 23.3
[2020-12-29 05:39] LABS: #Basophils 0.1 thou/uL (0.0-0.2); #Eosinphils 0.2 thou/uL (0.0-0.7); #Lymphocytes 2.3 thou/uL (1.20-3.40); #Monocytes 0.4 thou/uL (0.11-0.59); #Neutrophils 4.2 thou/uL (1.40-6.50); %Basophils 0.8 % (0.0-1.0); %Eosinophils 3.3 % (0.0-10.0); %Lymphocytes 31.9 % (21.0-51.0); %Monocytes 6.1 % (0.0-10.0); %Neutrophils 57.9 % (42.0-75.0); Hemoglobin 14.3 g/dL (14.0-18.0); Mean Corpuscular HGB CONC 32.1 g/dL (32.0-36.0); Mean Corpuscular Hemoglobin 28.6 pg (27.0-31.0); Mean Corpuscular Volume 89.1 fL (78.0-98.0); Mean Platelet Volume 8.2 fL (7.4-10.4); Platelet Count 204 thou/uL (130-400); RBC Distribution Width 12.8 % (11.5-14.5); Red Blood Cell (RBC) Count 4.98 mill/uL (4.70-6.10); White Blood Cell (WBC) Count 7.2 thou/uL (4.8-10.8)
[2020-12-29 05:59] LABS: Anion Gap 11 mmol/L (10-20); BUN (Urea Nitrogen) 14 mg/dL (8.4-25.7); Calc. Creatinine Clearance 83 mL/min (70-130); Calcium 8.1 mg/dL (7.8-10.44); Carbon Dioxide 26 mmol/L (23-31); Cardiac Risk 3.5 (Less than 4.5); Chloride 104 mmol/L (98-107); Cholesterol 125 mg/dl (< 200 Desired); Glucose 117 mg/dL (80-115); HDL Cholesterol 36 mg/dL (>60 Neg Risk); LDL Cholesterol, Calculated 81 mg/dL; Potassium 3.7 mmol/L (3.5-5.1); Sodium 137 mmol/L (136-145); Triglycerides 39 mg/dL (Less than 150)
[2020-12-29] MEDS: Meclizine HCl 25 MG TAB PO SCH ×2 (06:09→15:01)
[2020-12-29] MEDS: Carvedilol 6.25 MG TAB PO SCH (08:56)
[2020-12-29] MEDS ORDERED: Aspirin 325 mg Enteric Coated Tablet PO SCH (09:00)
[2020-12-29] MEDS ORDERED: Enoxaparin Sodium 40 MG/0.4 ML SYRINGE SC SCH (09:00)
[2020-12-29] MEDS ORDERED: FLU VACC QS2020-21(65YR UP)/PF 240 MCG/0.7 ML SYRINGE IM ONE (09:00)
[2020-12-29] MEDS ORDERED: Nicotine 21 MG PATCH TD SCH (09:00)
--- NOTE | 2020-12-29 09:01 | MRI ---
MRI BRAIN NONCONTRAST: DATE: 12/29/2020 HISTORY: 65-year-old male with "stroke," and dizziness FINDINGS: There is no obstructive hydrocephalus. There is no midline shift or any other evidence of mass effect . There is no extra-axial fluid collection. There is a moderate degree of T2-hyperintensities in the cerebral white matter consistent with chronic ischemic white matter changes due to microvascular atherosclerosis. Fazekas score 2 There is no evidence of recent hemorrhage or restricted diffusion. IMPRESSION: 1) moderate chronic ischemic white matter changes. 2) otherwise negative
[2020-12-29 12:41] VITALS: BP 125/75; TEMP 97.7
--- NOTE | 2020-12-29 13:35 | CON ---
NEUROLOGY CONSULTATION DATE OF CONSULTATION: 12/29/2020 REASON FOR CONSULTATION: Dizziness/vertigo. HISTORY OF PRESENT ILLNESS: Mr. Dejon Pemberton is a 65-year-old male with medical history significant for hypertension, dyslipidemia, coronary artery disease, status post stent, presented to the emergency room on 12/28/2020, because of vertigo. Per patient, he woke up in the morning and turned his alarm off and at that time, he felt as if the room is spinning in front of his eyes, he has difficulty getting out of the bed and making it to the floor because of extreme dizziness, nausea, and vomiting. He had multiple episodes of nausea and vomiting with associated with sensation of room spinning in front of his eyes. The patient denies any previous episodes like this, so he decided to come to the emergency room for further evaluation. The patient denies focal weakness, focal paresthesias, headache, chest pain, abdominal pain, recent illness, double vision, loss of vision, problems with speech or swallowing, or exposure to COVID-19. In the emergency room, head CT was done, which was negative for acute intracranial pathology. Allergies/Adverse Reactions: Allergy/AdvReac Type Severity Reaction Status Date / Time No Known Allergies Allergy Verified 07/08/18 12:20 Home Medications: Medication Instructions Recorded Confirmed Type Atorvastatin Calcium 40 mg PO HS 12/08/19 12/08/19 History Carvedilol [Coreg] 6.25 mg PO BID 12/08/19 12/08/19 History Lisinopril [Zestril] 10 mg PO HS 12/08/19 12/08/19 History Albuterol Sulfate HFA (OR) 2 puff INH Q6H PRN #1 inh 12/10/19 Rx [Proventil Hfa (or)] predniSONE 40 mg PO QAM-WM #3 tab 12/10/19 Rx ALLERGIES: NO KNOWN DRUG ALLERGIES. HOME MEDICATIONS: 1. Atorvastatin calcium 40 mg p.o. at bedtime. 2. Coreg 6.25 mg p.o. b.i.d. 3. Lisinopril 10 mg p.o. at bedtime. 4. Albuterol sulfate two puffs inhalation q.6 hours p.r.n. 5. Prednisone 40 mg p.o. q.a.m. Saturday, Saturday. REVIEW OF SYSTEMS: All systems reviewed and were negative except the pertinent positives and negatives mentioned in the HPI. PAST MEDICAL HISTORY: Hypertension, dyslipidemia, coronary artery disease. PAST SURGICAL HISTORY: Status post coronary artery stent. SOCIAL HISTORY: The patient smokes half to one pack a day. He drinks socially and denies any illegal drug abuse. FAMILY HISTORY: Mother had atrial fibrillation. PHYSICAL EXAMINATION: VITAL SIGNS: Blood pressure 150/78, pulse 80, respiratory rate 18. General Appearance: awake alert Eye: anicteric sclera ENT: no oropharyngeal lesions, moist mucosa ENT - other findings: Missing several teeth Neck: supple, symmetric, no thyromegaly, no lymphadenopathy Heart: RRR, no gallops, no rubs Respiratory: CTAB, no wheezes, no rales, no ronchi, normal chest expansion Gastrointestinal: soft, non-tender, non-distended, normal bowel sounds Skin: no rashes Neurological: Mental status, the patient is alert and oriented to person, place, and time. Speech is clear. Cranial nerves II through XII intact. Motor, muscle tone and bulk are normal. Strength 5/5 bilaterally. Sensory intact. Cerebellar, finger-nose testing intact. Gait, deferred due to patient's safety reason. DATA REVIEWED: Reviewed the labs, were essentially unremarkable except for mild hyperglycemia 123. EKG showed normal sinus rhythm. Chest x-ray did not reveal any acute cardiopulmonary process. WBC 6.0 thou/uL (4.8-10.8) 12/28/20 15:03 RBC 5.36 mill/uL (4.70-6.10) 12/28/20 15:03 Hgb 15.7 g/dL (14.0-18.0) 12/28/20 15:03 Hct 47.4 % (42.0-52.0) 12/28/20 15:03 MCV 88.5 fL (78.0-98.0) 12/28/20 15:03 MCH 29.2 pg (27.0-31.0) 12/28/20 15:03 MCHC 33.0 g/dL (32.0-36.0) 12/28/20 15:03 RDW 12.8 % (11.5-14.5) 12/28/20 15:03 Plt Count 225 thou/uL (130-400) 12/28/20 15:03 MPV 8.0 fL (7.4-10.4) 12/28/20 15:03 Neutrophils % 70.6 % (42.0-75.0) 12/28/20 15:03 Lymphocytes % 19.9 % (21.0-51.0) L 12/28/20 15:03 Monocytes % 6.9 % (0.0-10.0) 12/28/20 15:03 Eosinophils % 1.3 % (0.0-10.0) 12/28/20 15:03 Basophils % 1.2 % (0.0-1.0) H 12/28/20 15:03 Neutrophils # 4.2 thou/uL (1.40-6.50) 12/28/20 15:03 Lymphocytes # 1.2 thou/uL (1.20-3.40) 12/28/20 15:03 Monocytes # 0.4 thou/uL (0.11-0.59) 12/28/20 15:03 Eosinophils # 0.1 thou/uL (0.0-0.7) 12/28/20 15:03 Basophils # 0.1 thou/uL (0.0-0.2) 12/28/20 15:03 Sodium 138 mmol/L (136-145) 12/28/20 15:03 Potassium 4.5 mmol/L (3.5-5.1) 12/28/20 15:03 Chloride 102 mmol/L (98-107) 12/28/20 15:03 Carbon Dioxide 32 mmol/L (23-31) H 12/28/20 15:03 Anion Gap 9 mmol/L (10-20) L 12/28/20 15:03 BUN 14 mg/dL (8.4-25.7) 12/28/20 15:03 Creatinine 0.90 mg/dL (0.7-1.3) 12/28/20 15:03 Estimated GFR (MDRD) 84 12/28/20 15:03 Glucose 123 mg/dL (80-115) H 12/28/20 15:03 Calcium 8.8 mg/dL (7.8-10.44) 12/28/20 15:03 Total Bilirubin 0.9 mg/dL (0.2-1.2) 12/28/20 15:03 AST 17 U/L (5-34) 12/28/20 15:03 ALT 15 U/L (8-55) 12/28/20 15:03 Alkaline Phosphatase 80 U/L (40-110) 12/28/20 15:03 Troponin I Less than 0.010 ng/mL (< 0.028) 12/28/20 15:03 Serum Total Protein 6.2 g/dL (5.8-8.1) 12/28/20 15:03 Albumin 3.7 g/dL (3.4-4.8) 12/28/20 15:03 Globulin 2.5 g/dL (2.4-3.5) 12/28/20 15:03 Albumin/Globulin Ratio 1.5 g/dL (1.2-2.2) 12/28/20 15:03 EKG Status: image reviewed by me Additional Comments: EKG shows normal sinus rhythm, no ST changes to suggest an acute coronary syndrome. Chest x-ray Status: image reviewed by me Additional Comments: XR Chest 1 View Portable HISTORY: Vomiting COMPARISON: 12/08/2019 FINDINGS: The heart size is normal. The lungs are well expanded without focal areas of consolidation, pneumothorax or pleural effusions. IMPRESSION: No radiographic evidence of acute cardiopulmonary process. ASSESSMENT AND PLAN: (1) Vertigo Code(s): R42 - DIZZINESS AND GIDDINESS Status: Acute (2) CAD (coronary artery disease) Code(s): I25.10 - ATHSCL HEART DISEASE OF [place] CORONARY ARTERY W/O ANG PCTRS Status: Chronic Qualifiers: Coronary Disease-Associated Artery/Lesion type: [place] artery [place] vs. transplanted heart: [place] heart Associated angina: without angina Qualified Code(s): I25.10 - Atherosclerotic heart disease of [place] coronary artery without angina pectoris (3) Dyslipidemia Code(s): E78.5 - HYPERLIPIDEMIA, UNSPECIFIED Status: Chronic (4) Hypertension Code(s): I10 - ESSENTIAL (PRIMARY) HYPERTENSION Status: Chronic Qualifiers: Hypertension type: essential hypertension Qualified Code(s): I10 - Essential (primary) hypertension (5) Tobacco abuse Code(s): Z72.0 - TOBACCO USE Status: Chronic Mr. Dejon Pemberton is a 65-year-old male, who was admitted because of vertigo. There was a concern about posterior circulation TIA versus stroke. No focal deficits at this time and patient's dizziness seems to be improved. MRI of the brain reviewed which was negative for acute intracranial pathology. Carotid Dopplers did not reveal hemodynamically significant stenosis. Neuro checks every 4 hours. Strict control of blood pressure and blood glucose. Continued home medication. EEG to rule out cortical irritability reviewed and was negative for seizure activity. Continue aspirin and statin for secondary stroke prevention. 2D echo pending. Telemetry to rule out arrhythmias. Continue medical management per Primary team and continue symptomatic treatment with meclizine to which the patient did respond. The patient counseled about tobacco abuse, PT/OT. We will continue to follow. Thank you for the consult. Plan discussed in detail with the patient, nursing staff and also with the primary attending, Dr. Silva. Job ID: [id number] [facility]ITAL[facility] Ann
--- NOTE | 2020-12-29 13:58 | PDOC.EEG ---
Neurology EEG Report - Report Report: This EEG was performed using 24 channel [employer] video EEG machine with 24 disc electrodes. This was an extended 2 hours 5 minutes of inpatient video EEG recording. Digital analysis of the EEG was done for spike and seizure detection which revealed no abnormalities. Background: There is a non sustained posterior background rhythm is 7.5- 8 Hz. Reactivity seen with eye opening and closure. Hyperventilation: Not performed. Photic Stimulation: Bioccipital symmetric driving response is observed. Sleep: Drowsiness and sleep are observed. EEG Diagnosis: Occasional irregular theta activity seen during the recording. Slow nonsustained posterior background rhythm Clinical interpretation: This EEG is consistent with mild generalized nonspecific cerebral dysfunction.
--- NOTE | 2020-12-29 14:22 | PDOC.DS.DS ---
Provider Date of Admission: 12/28/20 17:43 Date of Discharge: 12/29/20 Admitting Provider: Gabriel Silva MD Consultations: Neurology (Dr. Carney) Primary Care Physician: DILAN Rojas Course Hospital Course: Discharge diagnosis: 1. Benign paroxysmal positional vertigo 2. Tobacco use Hospital course: Patient is a pleasant 65-year-old gentleman who was admitted to the hospital on December 28, 2020 for vertigo. He was started on scheduled meclizine. Neurologic studies were obtained to rule out posterior circulation stroke. Carotid Dopplers did not show any hemodynamically significant stenosis of internal carotid arteries. MRI of the brain showed moderate chronic ischemic white matter changes but was otherwise negative. He was seen by neurology service. He also underwent EEG, which was consistent with mild generalized nonspecific cerebral dysfunction. He has been advised to follow-up with his primary care provider for 2D echocardiogram report. He has also been advised to stop smoking. His vertigo resolved shortly after starting meclizine. He is being discharged home in a stable condition. Given his history of coronary artery disease, I'm also starting him on aspirin since he reports that he had a coronary stent. Many thanks for allowing me to participate in your patient's care. Please feel free to contact me with any questions or concerns. Discharge destination: Home Lab Results: 12/29/20 05:12 12/29/20 05:12 Abnormal Lab Results - Last 48 hrs 12/28/20 15:03: Carbon Dioxide 32 H, Anion Gap 9 L 12/28/20 15:03: Lymphocytes % 19.9 L, Basophils % 1.2 H Vitals: Vital Signs (12 hours) Temp Pulse Resp BP BP Pulse Ox 12/29/20 12:40 97.7 F 58 L 16 125/75 98 12/29/20 09:51 97.5 F L 57 L 17 140/65 100 12/29/20 04:00 97 F L 68 16 125/68 98 Weight Admit Weight 153 lb 9.6 oz Weight 153 lb 9.6 oz Physical Exam: The patient was seen and examined on the day of discharge. Vertigo has resolved. Patient denies chest pain or shortness of breath. Vital signs are stable. S1 and S2 are heard. Lungs are clear to auscultation bilaterally. Problem (1) Vertigo Code(s): R42 - DIZZINESS AND GIDDINESS Status: Acute (2) CAD (coronary artery disease) Code(s): I25.10 - ATHSCL HEART DISEASE OF [place] CORONARY ARTERY W/O ANG PCTRS Status: Chronic Qualifiers: Coronary Disease-Associated Artery/Lesion type: [place] artery [place] vs. transplanted heart: [place] heart Associated angina: without angina Qualified Code(s): I25.10 - Atherosclerotic heart disease of [place] coronary artery without angina pectoris (3) Dyslipidemia Code(s): E78.5 - HYPERLIPIDEMIA, UNSPECIFIED Status: Chronic (4) Hypertension Code(s): I10 - ESSENTIAL (PRIMARY) HYPERTENSION Status: Chronic Qualifiers: Hypertension type: essential hypertension Qualified Code(s): I10 - Esse ntial (primary) hypertension (5) Tobacco abuse Code(s): Z72.0 - TOBACCO USE Status: Chronic Plan Prescriptions: Aspirin [Ecotrin Low Strength] 81 mg PO DAILY #30 tab Meclizine HCl 25 mg PO TID PRN #15 tablet PRN Reason: vertigo Home Medications: Medication Instructions Recorded Confirmed Type Atorvastatin Calcium 40 mg PO HS 12/08/19 12/28/20 History Carvedilol [Coreg] 6.25 mg PO BID 12/08/19 12/28/20 History Lisinopril [Zestril] 10 mg PO HS 12/08/19 12/28/20 History Albuterol Sulfate HFA (OR) 2 puff INH Q6H PRN #1 inh 12/10/19 12/28/20 Rx [Proventil Hfa (or)] Aspirin [Ecotrin Low Strength] 81 mg PO DAILY #30 tab 12/29/20 Rx Meclizine HCl 25 mg PO TID PRN #15 tablet 12/29/20 Rx Nicotine [Nicoderm CQ] 21 mg TD DAILY patch 12/29/20 Rx Allergies: No Known Allergies Allergy (Verified 07/08/18 12:20) Discharge Instructions:: Meclizine can make you sleepy. Do not drive or operate heavy machinery if you take this medication. Follow-up with your primary care provider for 2D echocardiogram report. Stop smoking. Activity:: Activity as Tolerated Nourishment:: Heart Healthy Diet Referrals: Naila Beavers FNP [Primary Care Provider] - 3 Days Disposition: HOME Quality CORE MEASURES:: N/A
== END 2020-12-29 16:20 | disposition home or self-care (01) ==
LOC: ERS 14:22 → ERHOLD 17:43 → 3SE 20:58
PROVIDERS: ADMIT Internal Medicine; ATTEND Internal Medicine
DX: H81.10 Benign paroxysmal vertigo, unspecified ear (principal); F17.210 Nicotine dependence, cigarettes, uncomplicated; I25.10 Atherosclerotic heart disease of native coronary artery without angina pectoris; E78.5 Hyperlipidemia, unspecified; I10 Essential (primary) hypertension; E78.00 Pure hypercholesterolemia, unspecified; Z79.899 Other long term (current) drug therapy; Z95.5 Presence of coronary angioplasty implant and graft
CPT/HCPCS: 36415; 70450; 70551; 71045; 80048; 80053; 80061; 84484; 85025; 87635; 93005; 93306; 93880; 94760; 95712; 95819; 95957; 96365; 96372; 96375; G0378; J1650; J2405; J2550; U0003; U0005

== ENCOUNTER 2021-03-19 14:59 | Inpatient (IN) | payer MEDICARE, SELFPAY ==
[2021-03-19] MEDS ORDERED: Labetalol HCl 100 MG/20 ML VIAL ONE (15:54)
[2021-03-19 16:05] LABS: #Basophils 0.1 thou/uL (0.0-0.2); #Eosinphils 0.3 thou/uL (0.0-0.7); #Lymphocytes 1.7 thou/uL (1.20-3.40); #Monocytes 0.4 thou/uL (0.11-0.59); #Neutrophils 5.5 thou/uL (1.40-6.50); %Basophils 0.7 % (0.0-1.0); %Eosinophils 4.1 % (0.0-10.0); %Lymphocytes 21.2 % (21.0-51.0); %Monocytes 4.9 % (0.0-10.0); Hemoglobin 17.2 g/dL (14.0-18.0); Mean Corpuscular HGB CONC 32.5 g/dL (32.0-36.0); Mean Corpuscular Hemoglobin 28.9 pg (27.0-31.0); Mean Platelet Volume 7.6 fL (7.4-10.4); Platelet Count 252 thou/uL (130-400); Red Blood Cell (RBC) Count 5.95 mill/uL (4.70-6.10)
[2021-03-19 16:25] LABS: ALT (SGPT) 22 U/L (8-55); AST (SGOT) 19 U/L (5-34); Albumin 3.8 g/dL (3.4-4.8); Alkaline Phosphatase 85 U/L (40-110); Anion Gap 12 mmol/L (10-20); BUN (Urea Nitrogen) 13 mg/dL (8.4-25.7); Bilirubin, Total 0.7 mg/dL (0.2-1.2); Calc. Creatinine Clearance 0 mL/min (70-130); Calcium 9.2 mg/dL (7.8-10.44); Carbon Dioxide 32 mmol/L (23-31); Chloride 102 mmol/L (98-107); Globulin 2.6 g/dL (2.4-3.5); Glucose 97 mg/dL (80-115); Potassium 5.1 mmol/L (3.5-5.1); Protein, Total 6.4 g/dL (5.8-8.1); Sodium 141 mmol/L (136-145)
[2021-03-19] MEDS ORDERED: Acetaminophen 325 MG TAB PO PRN (19:44)
[2021-03-19] MEDS ORDERED: Guaifenesin DM 100-10/5 ML UDCUP PO PRN (19:44)
[2021-03-19] MEDS ORDERED: Bisacodyl 10 MG SUPP PR PRN (19:44)
[2021-03-19] MEDS ORDERED: Ondansetron PF 4 MG/2 ML Vial IVP PRN (19:44)
[2021-03-19] MEDS ORDERED: HYDROcodone/Acetaminophen 5/325 mg Tablet PO PRN (19:44)
[2021-03-19] MEDS ORDERED: hydrALAZINE 20 MG/ML VIAL SLOW IVP PRN (19:59)
[2021-03-19] MEDS ORDERED: Albuterol 200 PUFF (6.7GM INHALER) INH PRN (20:03)
[2021-03-19] MEDS: Famotidine 20 MG TAB PO SCH (20:15)
[2021-03-19] MEDS ORDERED: Amlodipine 5 MG TAB PO SCH (20:15)
[2021-03-19] MEDS ORDERED: Lisinopril 20 MG TAB PO SCH (20:15)
[2021-03-19] MEDS ORDERED: Carvedilol 6.25 MG TAB PO SCH (20:15)
[2021-03-19] MEDS: Nicotine 21 MG PATCH TD SCH (20:17)
[2021-03-20 02:34] VITALS: BMI 23.1
[2021-03-20 06:13] LABS: #Eosinphils 0.3 thou/uL (0.0-0.7); #Lymphocytes 2.2 thou/uL (1.20-3.40); #Monocytes 0.6 thou/uL (0.11-0.59); #Neutrophils 4.1 thou/uL (1.40-6.50); %Basophils 0.6 % (0.0-1.0); %Eosinophils 4.5 % (0.0-10.0); %Lymphocytes 30.9 % (21.0-51.0); %Monocytes 7.6 % (0.0-10.0); %Neutrophils 56.4 % (42.0-75.0); Hemoglobin 15.7 g/dL (14.0-18.0); Mean Corpuscular HGB CONC 32.3 g/dL (32.0-36.0); Mean Corpuscular Hemoglobin 28.5 pg (27.0-31.0); Mean Corpuscular Volume 88.3 fL (78.0-98.0); Mean Platelet Volume 7.9 fL (7.4-10.4); Platelet Count 237 thou/uL (130-400); RBC Distribution Width 12.9 % (11.5-14.5); White Blood Cell (WBC) Count 7.3 thou/uL (4.8-10.8)
[2021-03-20 06:35] LABS: Anion Gap 9 mmol/L (10-20); BUN (Urea Nitrogen) 15 mg/dL (8.4-25.7); Calc. Creatinine Clearance 70 mL/min (70-130); Calcium 8.7 mg/dL (7.8-10.44); Carbon Dioxide 29 mmol/L (23-31); Chloride 104 mmol/L (98-107); Glucose 91 mg/dL (80-115); Potassium 4.3 mmol/L (3.5-5.1); Sodium 138 mmol/L (136-145)
[2021-03-20 07:30] LABS: Cardiac Risk 3.5 (Less than 4.5)
[2021-03-20] MEDS: Carvedilol 6.25 MG TAB PO SCH ×2 (08:28→16:21)
[2021-03-20] MEDS: Aspirin 81 mg Enteric Coated Tablet PO SCH (08:29)
[2021-03-20] MEDS: Lisinopril 20 MG TAB PO SCH (08:29)
[2021-03-20] MEDS: Famotidine 20 MG TAB PO SCH ×2 (08:29→20:16)
[2021-03-20] MEDS: Enoxaparin Sodium 30 MG/0.3 ML SYRINGE SC SCH (08:30)
[2021-03-20] MEDS ORDERED: Amlodipine 5 MG TAB PO SCH ×2 (09:00→19:15)
[2021-03-20] MEDS ORDERED: Diltiazem 125 MG/25 ML ONE (10:50)
[2021-03-20 11:38] LABS: SARS-CoV-2 PCR NAA for Saliva Not Detected (NotDetected)
[2021-03-20] MEDS: Nicotine 21 MG PATCH TD SCH (20:17)
[2021-03-20] MEDS ORDERED: Atorvastatin Calcium 40 MG TAB PO SCH (21:00)
[2021-03-21] MEDS: Enoxaparin Sodium 30 MG/0.3 ML SYRINGE SC SCH (08:47)
[2021-03-21] MEDS: Carvedilol 6.25 MG TAB PO SCH (08:48)
[2021-03-21] MEDS: Famotidine 20 MG TAB PO SCH (08:48)
[2021-03-21] MEDS: Lisinopril 20 MG TAB PO SCH (08:48)
[2021-03-21] MEDS: Aspirin 81 mg Enteric Coated Tablet PO SCH (08:48)
[2021-03-21] MEDS ORDERED: Amlodipine 10 MG TAB PO SCH (09:00)
[2021-03-21 11:56] VITALS: BP 130/76; TEMP 97.3
== END 2021-03-21 12:58 | disposition home or self-care (01) | DRG 305 ==
LOC: ERS 14:59 → 2SE 18:49 → OBSVTOIN 03-20 09:58
PROVIDERS: ADMIT Internal Medicine; ATTEND Internal Medicine
DX: I16.0 Hypertensive urgency (principal); I10 Essential (primary) hypertension; Z20.822 Contact with and (suspected) exposure to COVID-19; E78.5 Hyperlipidemia, unspecified; J44.9 Chronic obstructive pulmonary disease, unspecified; I25.10 Atherosclerotic heart disease of native coronary artery without angina pectoris; F17.210 Nicotine dependence, cigarettes, uncomplicated; E78.00 Pure hypercholesterolemia, unspecified; Z79.82 Long term (current) use of aspirin; Z79.51 Long term (current) use of inhaled steroids; Z79.899 Other long term (current) drug therapy; Z95.5 Presence of coronary angioplasty implant and graft; Z88.8 Allergy status to other drugs, medicaments and biological substances
CPT/HCPCS: 36415; 70450; 70553; 80048; 80053; 80061; 84484; 85025; 87635; 93005; 94640; 96372; G0378; J1650; J7620; U0003; U0005

== ENCOUNTER 2021-06-23 10:07 | Emergency (ER) | payer MEDICARE ==
[2021-06-23 11:06] LABS: #Basophils 0.1 thou/uL (0.0-0.2); #Eosinphils 0.4 thou/uL (0.0-0.7); #Lymphocytes 2.9 thou/uL (1.20-3.40); #Monocytes 0.8 thou/uL (0.11-0.59); #Neutrophils 4.6 thou/uL (1.40-6.50); %Eosinophils 4.8 % (0.0-10.0); %Lymphocytes 32.6 % (21.0-51.0); %Monocytes 9.3 % (0.0-10.0); %Neutrophils 52.3 % (42.0-75.0); Hemoglobin 14.2 g/dL (14.0-18.0); Mean Corpuscular HGB CONC 32.8 g/dL (32.0-36.0); Mean Corpuscular Hemoglobin 29.6 pg (27.0-31.0); Mean Corpuscular Volume 90.1 fL (78.0-98.0); Mean Platelet Volume 7.3 fL (7.4-10.4); Platelet Count 267 thou/uL (130-400); RBC Distribution Width 14.6 % (11.5-14.5); White Blood Cell (WBC) Count 8.8 thou/uL (4.8-10.8)
[2021-06-23 11:25] LABS: ALT (SGPT) 18 U/L (8-55); AST (SGOT) 13 U/L (5-34); Alkaline Phosphatase 51 U/L (40-110); Anion Gap 5 mmol/L (10-20); BUN (Urea Nitrogen) 14 mg/dL (8.4-25.7); Bilirubin, Total 0.6 mg/dL (0.2-1.2); Calc. Creatinine Clearance 0 mL/min (70-130); Calcium 8.5 mg/dL (7.8-10.44); Carbon Dioxide 33 mmol/L (23-31); Chloride 106 mmol/L (98-107); Globulin 2.2 g/dL (2.4-3.5); Glucose 88 mg/dL (80-115); Potassium 3.9 mmol/L (3.5-5.1); Protein, Total 5.2 g/dL (5.8-8.1); Sodium 140 mmol/L (136-145)
== END 2021-06-23 12:27 | disposition home or self-care (01) ==
LOC: ERS 10:07
DX: R60.0 Localized edema (principal); J44.9 Chronic obstructive pulmonary disease, unspecified; I10 Essential (primary) hypertension; E78.00 Pure hypercholesterolemia, unspecified; I25.2 Old myocardial infarction; F17.210 Nicotine dependence, cigarettes, uncomplicated; Z79.899 Other long term (current) drug therapy
CPT/HCPCS: 36415; 80053; 83880; 85025; 93005

== ENCOUNTER 2021-06-29 09:52 | Emergency (ER) | payer MEDICARE ==
[2021-06-29 11:52] LABS: #Basophils 0.1 thou/uL (0.0-0.2); #Eosinphils 0.6 thou/uL (0.0-0.7); #Lymphocytes 2.2 thou/uL (1.20-3.40); #Monocytes 0.6 thou/uL (0.11-0.59); #Neutrophils 5.1 thou/uL (1.40-6.50); %Basophils 0.6 % (0.0-1.0); %Eosinophils 6.9 % (0.0-10.0); %Lymphocytes 25.7 % (21.0-51.0); %Monocytes 7.2 % (0.0-10.0); %Neutrophils 59.5 % (42.0-75.0); Hemoglobin 15.3 g/dL (14.0-18.0); Mean Corpuscular HGB CONC 32.9 g/dL (32.0-36.0); Mean Corpuscular Hemoglobin 29.9 pg (27.0-31.0); Mean Corpuscular Volume 90.8 fL (78.0-98.0); Mean Platelet Volume 7.4 fL (7.4-10.4); Platelet Count 258 thou/uL (130-400); RBC Distribution Width 14.6 % (11.5-14.5); Red Blood Cell (RBC) Count 5.12 mill/uL (4.70-6.10); White Blood Cell (WBC) Count 8.6 thou/uL (4.8-10.8)
[2021-06-29 12:15] LABS: ALT (SGPT) 16 U/L (8-55); AST (SGOT) 15 U/L (5-34); Albumin 3.4 g/dL (3.4-4.8); Alkaline Phosphatase 63 U/L (40-110); Anion Gap 8 mmol/L (10-20); BUN (Urea Nitrogen) 11 mg/dL (8.4-25.7); Bilirubin, Total 0.9 mg/dL (0.2-1.2); Calc. Creatinine Clearance 0 mL/min (70-130); Calcium 9.1 mg/dL (7.8-10.44); Carbon Dioxide 33 mmol/L (23-31); Chloride 105 mmol/L (98-107); Globulin 2.4 g/dL (2.4-3.5); Glucose 99 mg/dL (80-115); Potassium 4.5 mmol/L (3.5-5.1); Protein, Total 5.8 g/dL (5.8-8.1); Sodium 141 mmol/L (136-145)
[2021-06-29] MEDS ORDERED: Albuterol Sulfate 2.5 mg/0.5 ml Neb ONE (12:15)
[2021-06-29] MEDS ORDERED: predniSONE 20 MG TAB ONE (12:35)
== END 2021-06-29 14:19 ==
LOC: ERS 09:52
DX: J44.1 Chronic obstructive pulmonary disease with (acute) exacerbation (principal); E78.00 Pure hypercholesterolemia, unspecified; I10 Essential (primary) hypertension; I25.2 Old myocardial infarction; F17.210 Nicotine dependence, cigarettes, uncomplicated; Z79.899 Other long term (current) drug therapy
CPT/HCPCS: 36415; 71045; 80053; 83880; 84484; 85025; 93005; 94640; 94644; J7512; J7611

== ENCOUNTER 2021-07-28 05:11 | Inpatient (IN) | payer MEDICARE ==
[2021-07-28 06:18] LABS: #Basophils 0.1 thou/uL (0.0-0.2); #Eosinphils 0.5 thou/uL (0.0-0.7); #Lymphocytes 1.3 thou/uL (1.20-3.40); #Monocytes 0.3 thou/uL (0.11-0.59); #Neutrophils 5.3 thou/uL (1.40-6.50); %Basophils 0.9 % (0.0-1.0); %Eosinophils 6.1 % (0.0-10.0); %Lymphocytes 16.8 % (21.0-51.0); %Monocytes 4.6 % (0.0-10.0); %Neutrophils 71.7 % (42.0-75.0); Hemoglobin 16.2 g/dL (14.0-18.0); Mean Corpuscular HGB CONC 31.9 g/dL (32.0-36.0); Mean Corpuscular Hemoglobin 29.9 pg (27.0-31.0); Mean Corpuscular Volume 93.9 fL (78.0-98.0); Mean Platelet Volume 7.7 fL (7.4-10.4); Platelet Count 214 thou/uL (130-400); RBC Distribution Width 13.8 % (11.5-14.5); White Blood Cell (WBC) Count 7.5 thou/uL (4.8-10.8)
[2021-07-28 06:29] LABS: ALT (SGPT) 15 U/L (8-55); AST (SGOT) 14 U/L (5-34); Albumin 3.6 g/dL (3.4-4.8); Alkaline Phosphatase 63 U/L (40-110); Anion Gap 14 mmol/L (10-20); BUN (Urea Nitrogen) 20 mg/dL (8.4-25.7); Bilirubin, Total 0.8 mg/dL (0.2-1.2); Calc. Creatinine Clearance 0 mL/min (70-130); Calcium 8.9 mg/dL (7.8-10.44); Carbon Dioxide 26 mmol/L (23-31); Chloride 104 mmol/L (98-107); Globulin 2.7 g/dL (2.4-3.5); Glucose 109 mg/dL (80-115); Potassium 4.9 mmol/L (3.5-5.1); Protein, Total 6.3 g/dL (5.8-8.1); Sodium 139 mmol/L (136-145)
[2021-07-28] MEDS ORDERED: Aspirin 325 MG TAB ONE (06:57)
[2021-07-28] MEDS ORDERED: methylPREDNISolone Sod Succ/PF 125 MG/2 ML VIAL IVP SCH (08:22)
[2021-07-28] MEDS ORDERED: Albuterol Sulfate 2.5 mg/3 ml Neb NEB PRN (08:22)
[2021-07-28] MEDS ORDERED: Acetaminophen 325 MG TAB PO PRN (08:26)
[2021-07-28] MEDS ORDERED: Ondansetron ODT 4 MG TAB PO PRN (08:26)
[2021-07-28] MEDS ORDERED: Nicotine 14 MG PATCH TD PRN (08:26)
[2021-07-28] MEDS ORDERED: Acetaminophen 650 MG Suppository PR PRN (08:26)
[2021-07-28] MEDS ORDERED: Ondansetron PF 4 MG/2 ML Vial IVP PRN (08:26)
[2021-07-28] MEDS ORDERED: Nitroglycerin 0.4 MG TAB (25 Tab Bottle) SL PRN (08:37)
[2021-07-28] MEDS ORDERED: Benzonatate 100 MG CAP PO PRN (09:06)
[2021-07-28 09:17] LABS: Magnesium 1.9 mg/dL (1.6-2.6)
[2021-07-28 09:19] LABS: Troponin I Less than 0.010 ng/mL (< 0.028)
[2021-07-28] MEDS ORDERED: Iopamidol-370 76% 500 ML 1 ML ONE (11:01)
[2021-07-28 11:33] LABS: INR-International Normal Ratio 0.9; Prothrombin Time 11.9 sec (12.0-14.7)
[2021-07-28 11:34] LABS: PTT 31.7 sec (22.9-36.1)
[2021-07-28 11:36] LABS: D-Dimer Test 0.68 *mcg/mL (0.27-0.43)
[2021-07-28] MEDS: methylPREDNISolone Sod Succ/PF 125 MG/2 ML VIAL IVP SCH ×2 (13:09→19:19)
[2021-07-28 14:28] LABS: Troponin I Less than 0.010 ng/mL (< 0.028)
[2021-07-28 15:59] VITALS: BMI 28.1
[2021-07-28] MEDS: Enoxaparin Sodium 40 MG/0.4 ML SYRINGE SC SCH (16:33)
[2021-07-28] MEDS ORDERED: Atorvastatin Calcium 40 MG TAB PO SCH ×2 (21:00)
[2021-07-28] MEDS ORDERED: Carvedilol 6.25 MG TAB PO SCH ×2 (21:48→22:15)
[2021-07-28] MEDS ORDERED: Lisinopril 20 MG TAB PO SCH (22:00)
[2021-07-28] MEDS ORDERED: Sodium Chloride 0.9% 500 ML IV SCH (22:45)
[2021-07-29] MEDS: methylPREDNISolone Sod Succ/PF 125 MG/2 ML VIAL IVP SCH ×2 (00:15→05:51)
[2021-07-29 05:19] LABS: #Monocytes 0.2 thou/uL (0.11-0.59); #Neutrophils 10.1 thou/uL (1.40-6.50); %Eosinophils 0.1 % (0.0-10.0); %Lymphocytes 8.7 % (21.0-51.0); %Monocytes 1.4 % (0.0-10.0); %Neutrophils 89.8 % (42.0-75.0); Hemoglobin 14.7 g/dL (14.0-18.0); Mean Corpuscular HGB CONC 32.6 g/dL (32.0-36.0); Mean Corpuscular Hemoglobin 30.4 pg (27.0-31.0); Mean Corpuscular Volume 93.1 fL (78.0-98.0); Mean Platelet Volume 7.8 fL (7.4-10.4); Platelet Count 227 thou/uL (130-400); RBC Distribution Width 13.4 % (11.5-14.5); Red Blood Cell (RBC) Count 4.83 mill/uL (4.70-6.10); White Blood Cell (WBC) Count 11.3 thou/uL (4.8-10.8)
[2021-07-29 05:39] LABS: Anion Gap 12 mmol/L (10-20); BUN (Urea Nitrogen) 19 mg/dL (8.4-25.7); Calc. Creatinine Clearance 101 mL/min (70-130); Calcium 8.9 mg/dL (7.8-10.44); Carbon Dioxide 25 mmol/L (23-31); Chloride 105 mmol/L (98-107); Glucose 129 mg/dL (80-115); Potassium 4.5 mmol/L (3.5-5.1); Sodium 137 mmol/L (136-145)
[2021-07-29] MEDS ORDERED: Carvedilol 6.25 MG TAB PO SCH (09:00)
[2021-07-29] MEDS ORDERED: Aspirin 81 mg Enteric Coated Tablet PO SCH (09:00)
[2021-07-29] MEDS ORDERED: Lisinopril 20 MG TAB PO SCH (09:00)
[2021-07-29] MEDS: Enoxaparin Sodium 40 MG/0.4 ML SYRINGE SC SCH (09:45)
[2021-07-29 12:59] LABS: SARS-CoV-2 PCR by NAA Not Detected (NotDetected)
[2021-07-29 13:45] VITALS: BP 106/50; TEMP 97.7
== END 2021-07-29 18:08 | disposition home or self-care (01) | DRG 189 ==
LOC: SUATTDRO 05:11 → ERS 05:11 → ERHOLD 06:58 → 2SW 12:19
PROVIDERS: ADMIT Internal Medicine; ATTEND Internal Medicine
DX: J96.01 Acute respiratory failure with hypoxia (principal); J44.1 Chronic obstructive pulmonary disease with (acute) exacerbation; I10 Essential (primary) hypertension; F17.210 Nicotine dependence, cigarettes, uncomplicated; Z20.822 Contact with and (suspected) exposure to COVID-19; I25.10 Atherosclerotic heart disease of native coronary artery without angina pectoris; E78.5 Hyperlipidemia, unspecified; I95.9 Hypotension, unspecified; I44.0 Atrioventricular block, first degree; Z79.52 Long term (current) use of systemic steroids; Z95.5 Presence of coronary angioplasty implant and graft; I25.2 Old myocardial infarction; Z79.51 Long term (current) use of inhaled steroids; Z79.899 Other long term (current) drug therapy; Z83.6 Family history of other diseases of the respiratory system
CPT/HCPCS: 36415; 71045; 71275; 80048; 80053; 83735; 83880; 84484; 85025; 85379; 85610; 85730; 93005; 93970; 94640; 94760; J1650; J2930; J7030; J7620; Q9967; U0003; U0005

== ENCOUNTER 2021-10-22 02:21 | Inpatient (IN) | payer MEDICARE ==
[2021-10-22] MEDS ORDERED: methylPREDNISolone Sod Succ/PF 125 MG/2 ML VIAL ONE (02:39)
[2021-10-22] MEDS ORDERED: Albuterol Sulfate 2.5 mg/0.5 ml Neb ONE (02:40)
[2021-10-22 02:57] LABS: #Basophils 0.1 thou/uL (0.0-0.2); #Eosinphils 0.8 thou/uL (0.0-0.7); #Lymphocytes 1.9 thou/uL (1.20-3.40); #Monocytes 0.7 thou/uL (0.11-0.59); #Neutrophils 5.1 thou/uL (1.40-6.50); %Basophils 1.1 % (0.0-1.0); %Eosinophils 8.9 % (0.0-10.0); %Lymphocytes 21.8 % (21.0-51.0); %Monocytes 7.8 % (0.0-10.0); %Neutrophils 60.4 % (42.0-75.0); Hemoglobin 17.6 g/dL (14.0-18.0); Mean Corpuscular HGB CONC 33.1 g/dL (32.0-36.0); Mean Corpuscular Hemoglobin 30.6 pg (27.0-31.0); Mean Corpuscular Volume 92.6 fL (78.0-98.0); Mean Platelet Volume 6.9 fL (7.4-10.4); Platelet Count 335 thou/uL (130-400); RBC Distribution Width 12.8 % (11.5-14.5); Red Blood Cell (RBC) Count 5.73 mill/uL (4.70-6.10); White Blood Cell (WBC) Count 8.5 thou/uL (4.8-10.8)
[2021-10-22 03:19] LABS: ALT (SGPT) 13 U/L (8-55); AST (SGOT) 15 U/L (5-34); Albumin 3.9 g/dL (3.4-4.8); Alkaline Phosphatase 78 U/L (40-110); Anion Gap 13 mmol/L (10-20); BUN (Urea Nitrogen) 17 mg/dL (8.4-25.7); Bilirubin, Total 0.4 mg/dL (0.2-1.2); Calc. Creatinine Clearance 0 mL/min (70-130); Calcium 9.1 mg/dL (7.8-10.44); Carbon Dioxide 26 mmol/L (23-31); Chloride 105 mmol/L (98-107); Globulin 2.7 g/dL (2.4-3.5); Glucose 107 mg/dL (80-115); Potassium 4.7 mmol/L (3.5-5.1); Protein, Total 6.6 g/dL (5.8-8.1); Sodium 139 mmol/L (136-145)
[2021-10-22] MEDS ORDERED: Aspirin Chewable 81 MG TAB ONE (03:24)
[2021-10-22 03:28] LABS: Bilirubin Negative (Negative); Blood, Urine Negative (Negative); Clarity Clear (Clear); Glucose, Urine (Dipstick) Normal (Negative); Ketone, Urine Negative (Negative); Leukocyte Negative Leu/uL (Negative); Nitrite Negative (Negative); Protein, Urine (Dipstick) Negative (Neg-Trace); Specific Gravity, Urine 1.019 (1.002-1.036); Urobilinogen Normal mg/dL (Less than 2)
[2021-10-22 04:03] LABS: SARS-CoV-2 NAA Rapid Test Not Detected (NotDetected)
[2021-10-22] MEDS ORDERED: Acetaminophen 650 MG Suppository PR PRN (04:07)
[2021-10-22] MEDS ORDERED: Ondansetron PF 4 MG/2 ML Vial IVP PRN (04:07)
[2021-10-22] MEDS ORDERED: Acetaminophen 325 MG TAB PO PRN (04:07)
[2021-10-22] MEDS ORDERED: Ondansetron ODT 4 MG TAB PO PRN (04:07)
[2021-10-22 04:40] VITALS: BMI 26.3
[2021-10-22] MEDS ORDERED: methylPREDNISolone Sod Succ 40 MG VIAL IVP SCH ×2 (05:00→11:15)
[2021-10-22] MEDS: Azithromycin 500 MG in Sodium Chloride 0.9% 250 ML 250 ML IVPB SCH (05:23)
[2021-10-22 06:28] LABS: Troponin I 0.018 ng/mL (< 0.028)
[2021-10-22] MEDS ORDERED: Furosemide 40 MG/4 ML VIAL SLOW IVP SCH (06:45)
[2021-10-22] MEDS ORDERED: FLU VACC QS2021-22(65YR UP)/PF 240 MCG/0.7 ML SYRINGE IM ONE (09:00)
[2021-10-22 09:25] LABS: Troponin I Less than 0.010 ng/mL (< 0.028)
[2021-10-22] MEDS: Enoxaparin Sodium 40 MG/0.4 ML SYRINGE SC SCH (09:46)
[2021-10-22] MEDS ORDERED: Aspirin 81 mg Enteric Coated Tablet PO SCH (11:15)
[2021-10-22] MEDS: methylPREDNISolone Sod Succ/PF 125 MG/2 ML VIAL IVP SCH ×3 (12:08→23:23)
[2021-10-22] MEDS ORDERED: Atorvastatin Calcium 40 MG TAB PO SCH (21:00)
[2021-10-23 03:49] VITALS: BP 135/69; TEMP 98.2
[2021-10-23 04:45] LABS: #Basophils 0.1 thou/uL (0.0-0.2); #Monocytes 0.1 thou/uL (0.11-0.59); #Neutrophils 10.6 thou/uL (1.40-6.50); %Basophils 0.5 % (0.0-1.0); %Eosinophils 0.1 % (0.0-10.0); %Lymphocytes 8.4 % (21.0-51.0); %Monocytes 1.2 % (0.0-10.0); %Neutrophils 89.8 % (42.0-75.0); Hemoglobin 16.3 g/dL (14.0-18.0); Mean Corpuscular HGB CONC 30.9 g/dL (32.0-36.0); Mean Corpuscular Hemoglobin 28.4 pg (27.0-31.0); Mean Platelet Volume 7.5 fL (7.4-10.4); Platelet Count 348 thou/uL (130-400); RBC Distribution Width 12.8 % (11.5-14.5); Red Blood Cell (RBC) Count 5.73 mill/uL (4.70-6.10); White Blood Cell (WBC) Count 11.8 thou/uL (4.8-10.8)
[2021-10-23 05:04] LABS: Anion Gap 13 mmol/L (10-20); BUN (Urea Nitrogen) 18 mg/dL (8.4-25.7); Calc. Creatinine Clearance 78 mL/min (70-130); Calcium 9.4 mg/dL (7.8-10.44); Carbon Dioxide 25 mmol/L (23-31); Chloride 102 mmol/L (98-107); Glucose 187 mg/dL (80-115); Potassium 3.9 mmol/L (3.5-5.1); Sodium 136 mmol/L (136-145)
[2021-10-23] MEDS: methylPREDNISolone Sod Succ/PF 125 MG/2 ML VIAL IVP SCH (05:10)
[2021-10-23] MEDS: Azithromycin 500 MG in Sodium Chloride 0.9% 250 ML 250 ML IVPB SCH (05:10)
[2021-10-23] MEDS ORDERED: Furosemide 40 MG/4 ML VIAL SLOW IVP SCH (06:00)
[2021-10-23] MEDS ORDERED: Aspirin 81 mg Enteric Coated Tablet PO SCH (09:00)
[2021-10-23] MEDS: Enoxaparin Sodium 40 MG/0.4 ML SYRINGE SC SCH (09:33)
[2021-10-23] MEDS ORDERED: Mometasone 100 MCG/Formoterol 5 MCG 120 PUFF INHALER INH SCH ×2 (09:45→18:30)
== END 2021-10-23 12:20 | disposition home or self-care (01) | DRG 191 ==
LOC: ERS 02:21 → 2NO 03:37 → OBSVTOIN 11:08
PROVIDERS: ADMIT Student in an Organized Health Care Education/Training Program; ATTEND Student in an Organized Health Care Education/Training Program
DX: J44.1 Chronic obstructive pulmonary disease with (acute) exacerbation (principal); I50.30 Unspecified diastolic (congestive) heart failure; I25.10 Atherosclerotic heart disease of native coronary artery without angina pectoris; Z20.822 Contact with and (suspected) exposure to COVID-19; F17.210 Nicotine dependence, cigarettes, uncomplicated; D72.829 Elevated white blood cell count, unspecified; T38.0X5A Adverse effect of glucocorticoids and synthetic analogues, initial encounter; I11.0 Hypertensive heart disease with heart failure; Z79.51 Long term (current) use of inhaled steroids; I25.2 Old myocardial infarction; Z79.899 Other long term (current) drug therapy; Z95.5 Presence of coronary angioplasty implant and graft
CPT/HCPCS: 0240U; 36415; 71045; 80048; 80053; 81003; 83880; 84484; 85025; 93005; 94640; 96372; 96374; 96375; G0378; J0456; J1650; J1940; J2920; J2930; J7050; J7611; J7620

== ENCOUNTER 2021-11-24 02:23 | Inpatient (IN) | payer MEDICARE ==
[2021-11-24 02:49] LABS: #Eosinphils 0.7 thou/uL (0.0-0.7); #Lymphocytes 1.7 thou/uL (1.20-3.40); #Monocytes 0.7 thou/uL (0.11-0.59); #Neutrophils 7.6 thou/uL (1.40-6.50); %Basophils 0.3 % (0.0-1.0); %Eosinophils 6.3 % (0.0-10.0); %Lymphocytes 15.6 % (21.0-51.0); %Monocytes 6.2 % (0.0-10.0); %Neutrophils 71.7 % (42.0-75.0); Hemoglobin 16.1 g/dL (14.0-18.0); Mean Corpuscular HGB CONC 31.6 g/dL (32.0-36.0); Mean Corpuscular Hemoglobin 28.8 pg (27.0-31.0); Mean Corpuscular Volume 91.1 fL (78.0-98.0); Platelet Count 297 thou/uL (130-400); RBC Distribution Width 12.7 % (11.5-14.5); White Blood Cell (WBC) Count 10.6 thou/uL (4.8-10.8)
[2021-11-24 02:55] LABS: Actual Bicarbonate (HCO3a) 24.4 mEq/L (22-28); Analyzer IN Cardio ER; Base Excess (BEa) -5.2 mEq/L (-2.0 to +3.0); Calcium, Ionized (arterial) 1.12 mmol/L (1.12-1.30); Carboxyhemoglobin (COHb) 3.2 gm% (0.0-3.0); Hemoglobin (Hb) 17.1 g/dL (14.0-18.0); Potassium - ABG Lab 5.78 mmol/L (3.70-5.30)
[2021-11-24 03:02] LABS: Puncture Site RRA
[2021-11-24 03:18] LABS: ALT (SGPT) 18 U/L (8-55); AST (SGOT) 20 U/L (5-34); Albumin 3.3 g/dL (3.4-4.8); Alkaline Phosphatase 89 U/L (40-110); Anion Gap 11 mmol/L (10-20); BUN (Urea Nitrogen) 11 mg/dL (8.4-25.7); Bilirubin, Total 0.6 mg/dL (0.2-1.2); Calc. Creatinine Clearance 0 mL/min (70-130); Calcium 8.1 mg/dL (7.8-10.44); Carbon Dioxide 26 mmol/L (23-31); Chloride 108 mmol/L (98-107); Globulin 2.9 g/dL (2.4-3.5); Glucose 149 mg/dL (80-115); Potassium 5.2 mmol/L (3.5-5.1); Protein, Total 6.2 g/dL (5.8-8.1); Sodium 140 mmol/L (136-145)
[2021-11-24] MEDS ORDERED: cefTRIAXone\\ROCEPHIN 2 GM VIAL ONE (03:28)
[2021-11-24] MEDS ORDERED: fentaNYL Citrate/PF 2,000 MCG in Sodium Chloride 0.9% 60 ML IV SCH (03:30)
[2021-11-24 03:41] LABS: CKMB 2.1 ng/mL (0-6.6)
[2021-11-24] MEDS ORDERED: Azithromycin 500 MG VIAL ONE (04:24)
[2021-11-24] MEDS ORDERED: Ondansetron PF 4 MG/2 ML Vial IVP PRN (04:52)
[2021-11-24] MEDS ORDERED: Ondansetron ODT 4 MG TAB PO PRN (04:52)
[2021-11-24] MEDS ORDERED: Acetaminophen 650 MG Suppository PR PRN (04:52)
[2021-11-24] MEDS ORDERED: Acetaminophen 325 MG TAB PO PRN (04:52)
[2021-11-24] MEDS ORDERED: Enoxaparin Sodium 40 MG/0.4 ML SYRINGE SC SCH ×3 (05:00→21:00)
[2021-11-24] MEDS ORDERED: cefTRIAXone\\ROCEPHIN 1 GM in Sodium Chloride 0.9% 100 ML IVPB SCH (05:00)
[2021-11-24] MEDS ORDERED: Ketamine 50 MG/ML (10ML VIAL) ONE (05:04)
[2021-11-24] MEDS ORDERED: Norepinephrine 8 MG/0.9% NS 250 ML ONE (05:12)
[2021-11-24 05:14] LABS: SARS-CoV-2 NAA Rapid Test DETECTED (NotDetected)
[2021-11-24] MEDS ORDERED: Dexamethasone 10 MG/ML VIAL SLOW IVP SCH (06:15)
[2021-11-24] MEDS ORDERED: Norepinephrine 8 MG/0.9% NS 250 ML IVPB PRN (06:50)
[2021-11-24] MEDS ORDERED: Morphine 4 MG/ML VIAL SLOW IVP PRN (06:55)
[2021-11-24] MEDS ORDERED: Fentanyl BOLUS 250 ML IVPB PRN (07:00)
[2021-11-24] MEDS ORDERED: Morphine 2 MG/ML VIAL SLOW IVP PRN (07:00)
[2021-11-24] MEDS ORDERED: Ventilator Sedation Protocol 1 EACH FS SCH (07:00)
[2021-11-24] MEDS ORDERED: Lorazepam 2 MG/ML VIAL SLOW IVP PRN (07:00)
[2021-11-24] MEDS ORDERED: Aspirin 325 MG TAB PO SCH (07:00)
[2021-11-24] MEDS ORDERED: DISCONTINUE PREVIOUS NARCOTIC PAIN MEDICATIONS AND BENZODIAZEPINES FS SCH (07:00)
[2021-11-24] MEDS ORDERED: Propofol BOLUS 1,000 MG/100 ML VIAL IV PRN (07:00)
[2021-11-24 07:28] LABS: Troponin I 0.171 ng/mL (< 0.028)
[2021-11-24 08:10] LABS: Actual Bicarbonate (HCO3a) 19.9 mEq/L (22-28); Base Excess (BEa) -6.9 mEq/L (-2.0 to +3.0); CO2 Tension 44.5 mmHg (35.0-45.0); Calcium, Ionized (arterial) 1.07 mmol/L (1.12-1.30); Carboxyhemoglobin (COHb) 2.2 gm% (0.0-3.0); O2 Tension (PaO2), arterial 129.4 mmHg (> 80.0); Potassium - ABG Lab 4.92 mmol/L (3.70-5.30); pH, Arterial 7.27 (7.35-7.45)
[2021-11-24 08:11] LABS: Puncture Site LBA
[2021-11-24 08:13] LABS: ALV-art Gradient 100.175 mmHg (0-20)
[2021-11-24] MEDS ORDERED: Enoxaparin Sodium 60 MG/0.6 ML SYRINGE SC SCH (08:15)
[2021-11-24] MEDS: Propofol 1,000 MG/100 ML VIAL IV PRN (09:54)
[2021-11-24] MEDS ORDERED: Magnesium Sulfate 4 GM in Sodium Chloride 0.9% 250 ML 250 ML IVPB SCH (10:45)
[2021-11-24] MEDS: Sodium Chloride 0.9% 1,000 ML IV SCH ×2 (11:37→21:38)
[2021-11-24] MEDS: methylPREDNISolone Sod Succ 40 MG VIAL IVP SCH ×2 (11:37→17:35)
[2021-11-24] MEDS ORDERED: Enoxaparin Sodium 100 MG/ML SYRINGE SC SCH (21:00)
[2021-11-25] MEDS: methylPREDNISolone Sod Succ 40 MG VIAL IVP SCH ×5 (00:24→23:24)
[2021-11-25] MEDS ORDERED: cefTRIAXone\\ROCEPHIN 1 GM in Sodium Chloride 0.9% 100 ML IVPB SCH (04:00)
[2021-11-25] MEDS: Propofol 1,000 MG/100 ML VIAL IV PRN (04:22)
[2021-11-25] MEDS: Azithromycin 500 MG in Sodium Chloride 0.9% 250 ML 250 ML IVPB SCH (04:22)
[2021-11-25 04:45] LABS: #Monocytes 0.4 thou/uL (0.11-0.59); #Neutrophils 9.9 thou/uL (1.40-6.50); %Basophils 0.2 % (0.0-1.0); %Eosinophils 0.1 % (0.0-10.0); %Monocytes 3.7 % (0.0-10.0); %Neutrophils 87.1 % (42.0-75.0); Hemoglobin 14.5 g/dL (14.0-18.0); Mean Corpuscular HGB CONC 31.7 g/dL (32.0-36.0); Mean Corpuscular Hemoglobin 28.8 pg (27.0-31.0); Mean Corpuscular Volume 90.7 fL (78.0-98.0); Mean Platelet Volume 7.2 fL (7.4-10.4); Platelet Count 290 thou/uL (130-400); RBC Distribution Width 12.9 % (11.5-14.5); Red Blood Cell (RBC) Count 5.04 mill/uL (4.70-6.10); White Blood Cell (WBC) Count 11.3 thou/uL (4.8-10.8)
[2021-11-25 05:06] LABS: Anion Gap 12 mmol/L (10-20); BUN (Urea Nitrogen) 25 mg/dL (8.4-25.7); Calc. Creatinine Clearance 97 mL/min (70-130); Calcium 8.1 mg/dL (7.8-10.44); Carbon Dioxide 22 mmol/L (23-31); Chloride 112 mmol/L (98-107); Glucose 130 mg/dL (80-115); Sodium 141 mmol/L (136-145)
[2021-11-25 08:12] LABS: Actual Bicarbonate (HCO3a) 18.7 mEq/L (22-28); Base Excess (BEa) -6.5 mEq/L (-2.0 to +3.0); CO2 Tension 36.6 mmHg (35.0-45.0); Calcium, Ionized (arterial) 1.14 mmol/L (1.12-1.30); Carboxyhemoglobin (COHb) 0.6 gm% (0.0-3.0); Hemoglobin (Hb) 15.1 g/dL (14.0-18.0); O2 Tension (PaO2), arterial 130.1 mmHg (> 80.0); Potassium - ABG Lab 4.82 mmol/L (3.70-5.30); pH, Arterial 7.33 (7.35-7.45)
[2021-11-25 08:25] LABS: Puncture Site RRA
[2021-11-25] MEDS: Pantoprazole 40 MG VIAL IVP SCH (08:48)
[2021-11-25] MEDS: Sodium Chloride 0.9% 1,000 ML IV SCH ×2 (08:48→18:30)
[2021-11-25] MEDS: Aspirin Chewable 81 MG TAB PO SCH (08:48)
[2021-11-25] MEDS ORDERED: Enoxaparin Sodium 40 MG/0.4 ML SYRINGE SC SCH (09:00)
[2021-11-25] MEDS ORDERED: Dexamethasone 10 MG/ML VIAL SLOW IVP SCH (09:00)
[2021-11-25] MEDS ORDERED: DC Sedation Protocol FS ONE (09:04)
[2021-11-25] MEDS: Ipratropium/Albuterol Sulfate 4 GM AER IH SCH ×3 (14:48→23:24)
[2021-11-25] MEDS ORDERED: Ipratropium/Albuterol Sulfate 4 GM AER IH PRN (14:48)
[2021-11-25 16:19] LABS: Troponin I 0.271 ng/mL (< 0.028)
[2021-11-25] MEDS: Enoxaparin Sodium 40 MG/0.4 ML SYRINGE SC SCH (20:06)
[2021-11-26] MEDS: Ipratropium/Albuterol Sulfate 4 GM AER IH SCH ×6 (03:25→22:00)
[2021-11-26] MEDS: Sodium Chloride 0.9% 1,000 ML IV SCH ×2 (03:26→12:54)
[2021-11-26] MEDS: Azithromycin 500 MG in Sodium Chloride 0.9% 250 ML 250 ML IVPB SCH (04:52)
[2021-11-26] MEDS: methylPREDNISolone Sod Succ 40 MG VIAL IVP SCH (05:00)
[2021-11-26] MEDS: Aspirin Chewable 81 MG TAB PO SCH (08:18)
[2021-11-26] MEDS: Pantoprazole 40 MG VIAL IVP SCH (08:19)
[2021-11-26] MEDS: Enoxaparin Sodium 40 MG/0.4 ML SYRINGE SC SCH ×2 (08:19→20:12)
[2021-11-26] MEDS: Doxycycline 100 MG CAP PO SCH (20:12)
[2021-11-27] MEDS: Ipratropium/Albuterol Sulfate 4 GM AER IH SCH ×4 (02:36→21:25)
[2021-11-27 05:28] VITALS: BMI 29.9
[2021-11-27] MEDS: Dexamethasone 4 MG TAB PO SCH (08:07)
[2021-11-27] MEDS: Enoxaparin Sodium 40 MG/0.4 ML SYRINGE SC SCH ×2 (08:07→21:25)
[2021-11-27] MEDS: Aspirin Chewable 81 MG TAB PO SCH (08:07)
[2021-11-27] MEDS: Pantoprazole 40 MG VIAL IVP SCH (08:08)
[2021-11-27] MEDS: Doxycycline 100 MG CAP PO SCH ×2 (11:30→21:25)
[2021-11-27] MEDS ORDERED: Atorvastatin Calcium 40 MG TAB PO SCH (21:00)
[2021-11-28] MEDS: Ipratropium/Albuterol Sulfate 4 GM AER IH SCH ×4 (07:38→18:22)
[2021-11-28] MEDS: Enoxaparin Sodium 40 MG/0.4 ML SYRINGE SC SCH (09:15)
[2021-11-28] MEDS: Doxycycline 100 MG CAP PO SCH ×2 (09:15→18:21)
[2021-11-28] MEDS: Dexamethasone 4 MG TAB PO SCH (09:15)
[2021-11-28] MEDS: Aspirin Chewable 81 MG TAB PO SCH (09:15)
[2021-11-28] MEDS: Pantoprazole 40 MG VIAL IVP SCH (09:15)
[2021-11-28] MEDS ORDERED: Furosemide 20 MG TAB PO SCH (16:00)
[2021-11-28 17:11] VITALS: BP 162/96; TEMP 98.4
[2021-11-29] MEDS ORDERED: Furosemide 20 MG TAB PO SCH (09:00)
== END 2021-11-28 20:10 | disposition home or self-care (01) | DRG 871 ==
LOC: ERS 02:23 → CCU 03:46 → T4-A 11-25 16:35
PROVIDERS: ADMIT Student in an Organized Health Care Education/Training Program; ATTEND Internal Medicine
PROC: 5A1945Z Respiratory Ventilation, 24-96 Consecutive Hours (ICD-10-PCS; principal; 2021-11-24)
PROC: 0D9670Z Drainage of Stomach with Drainage Device, Via Natural or Artificial Opening (ICD-10-PCS; 2021-11-24)
PROC: 3E033XZ Introduction of Vasopressor into Peripheral Vein, Percutaneous Approach (ICD-10-PCS; 2021-11-24)
PROC: 3E043XZ Introduction of Vasopressor into Central Vein, Percutaneous Approach (ICD-10-PCS; 2021-11-24)
PROC: 02HV33Z Insertion of Infusion Device into Superior Vena Cava, Percutaneous Approach (ICD-10-PCS; 2021-11-24)
PROC: B548ZZA Ultrasonography of Superior Vena Cava, Guidance (ICD-10-PCS; 2021-11-24)
PROC: 8E0ZXY6 Isolation (ICD-10-PCS; 2021-11-24)
DX: A41.89 Other specified sepsis (principal); U07.1 COVID-19; J12.82 Pneumonia due to coronavirus disease 2019; J96.02 Acute respiratory failure with hypercapnia; J96.01 Acute respiratory failure with hypoxia; I21.A1 Myocardial infarction type 2; R65.21 Severe sepsis with septic shock; J44.1 Chronic obstructive pulmonary disease with (acute) exacerbation; J44.0 Chronic obstructive pulmonary disease with (acute) lower respiratory infection; I10 Essential (primary) hypertension; F17.210 Nicotine dependence, cigarettes, uncomplicated; I25.10 Atherosclerotic heart disease of native coronary artery without angina pectoris; I08.1 Rheumatic disorders of both mitral and tricuspid valves; R22.32 Localized swelling, mass and lump, left upper limb; Z79.899 Other long term (current) drug therapy; Z78.1 Physical restraint status; Z95.5 Presence of coronary angioplasty implant and graft; I25.2 Old myocardial infarction; Z79.82 Long term (current) use of aspirin; Z79.52 Long term (current) use of systemic steroids
CPT/HCPCS: 36415; 36416; 36600; 71045; 80048; 80053; 82553; 82728; 82805; 83605; 83880; 84484; 85025; 85379; 86140; 87040; 93005; 93306; 94002; 94640; C9113; J0456; J0696; J1100; J1650; J2405; J2704; J2920; J3010; J3475; J3490; J7050; J7620; J8540; U0002

== ENCOUNTER 2022-02-07 13:09 | Observation (INO) | payer MEDICARE, OTHER ==
[2022-02-07] MEDS ORDERED: Magnesium 2 GM/50 ML BAG (IN WATER) ONE (13:40)
[2022-02-07 13:54] LABS: #Eosinphils 0.4 thou/uL (0.0-0.7); #Lymphocytes 1.3 thou/uL (1.20-3.40); #Monocytes 0.3 thou/uL (0.11-0.59); #Neutrophils 6.7 thou/uL (1.40-6.50); %Basophils 0.1 % (0.0-1.0); %Eosinophils 4.5 % (0.0-10.0); %Lymphocytes 14.6 % (21.0-51.0); %Monocytes 3.4 % (0.0-10.0); %Neutrophils 77.4 % (42.0-75.0); Hemoglobin 17.1 g/dL (14.0-18.0); Mean Corpuscular HGB CONC 31.7 g/dL (32.0-36.0); Mean Corpuscular Hemoglobin 28.9 pg (27.0-31.0); Mean Corpuscular Volume 90.9 fL (78.0-98.0); Platelet Count 341 thou/uL (130-400); RBC Distribution Width 14.6 % (11.5-14.5); Red Blood Cell (RBC) Count 5.93 mill/uL (4.70-6.10); White Blood Cell (WBC) Count 8.7 thou/uL (4.8-10.8)
[2022-02-07 14:23] LABS: ALT (SGPT) 19 U/L (8-55); AST (SGOT) 14 U/L (5-34); Albumin 4.1 g/dL (3.4-4.8); Alkaline Phosphatase 79 U/L (40-110); Anion Gap 15 mmol/L (10-20); BUN (Urea Nitrogen) 20 mg/dL (8.4-25.7); Calc. Creatinine Clearance 0 mL/min (70-130); Calcium 9.4 mg/dL (7.8-10.44); Carbon Dioxide 27 mmol/L (23-31); Chloride 103 mmol/L (98-107); Globulin 2.9 g/dL (2.4-3.5); Glucose 108 mg/dL (80-115); Magnesium 1.9 mg/dL (1.6-2.6); Potassium 4.1 mmol/L (3.5-5.1); Sodium 141 mmol/L (136-145)
[2022-02-07] MEDS ORDERED: Aspirin 325 MG TAB ONE (14:55)
[2022-02-07] MEDS ORDERED: Nitroglycerin 0.4 MG TAB (25 Tab Bottle) SL PRN (16:15)
[2022-02-07] MEDS ORDERED: prednisoLONE 10 MG ODT TAB PO SCH (17:00)
[2022-02-07] MEDS ORDERED: Amlodipine 10 MG TAB PO SCH (17:00)
[2022-02-07 17:46] LABS: Troponin I Less than 0.010 ng/mL (< 0.028)
[2022-02-07 18:02] VITALS: BMI 29.9
[2022-02-07] MEDS: Mometasone 200 MCG/Formoterol 5 MCG 120 PUFF INHALER INH SCH (19:31)
[2022-02-07 20:35] LABS: Troponin I Less than 0.010 ng/mL (< 0.028)
[2022-02-07] MEDS ORDERED: Atorvastatin Calcium 40 MG TAB PO SCH (21:00)
[2022-02-08 04:44] LABS: Cardiac Risk 3.4 (Less than 4.5)
[2022-02-08] MEDS: Mometasone 200 MCG/Formoterol 5 MCG 120 PUFF INHALER INH SCH ×2 (07:30→18:15)
[2022-02-08] MEDS ORDERED: Amlodipine 10 MG TAB PO SCH (09:00)
[2022-02-08] MEDS ORDERED: Aspirin 325 mg Enteric Coated Tablet PO SCH (09:00)
[2022-02-08] MEDS ORDERED: prednisoLONE 10 MG ODT TAB PO SCH (09:00)
[2022-02-08] MEDS ORDERED: Enoxaparin Sodium 40 MG/0.4 ML SYRINGE SC SCH (09:00)
[2022-02-08] MEDS ORDERED: Regadenoson 0.4 MG/5 ML SYRINGE ONE (09:27)
[2022-02-08 15:38] VITALS: BP 118/63; TEMP 97.9
[2022-02-09] MEDS ORDERED: Aspirin 81 mg Enteric Coated Tablet PO SCH (09:00)
== END 2022-02-08 19:02 | disposition home or self-care (01) ==
LOC: ERS 13:09 → 2SW 15:01
PROVIDERS: ADMIT Internal Medicine Geriatric Medicine; ATTEND Internal Medicine Geriatric Medicine
DX: J44.1 Chronic obstructive pulmonary disease with (acute) exacerbation (principal); R07.9 Chest pain, unspecified; I25.10 Atherosclerotic heart disease of native coronary artery without angina pectoris; I10 Essential (primary) hypertension; F17.210 Nicotine dependence, cigarettes, uncomplicated; I25.2 Old myocardial infarction; I08.2 Rheumatic disorders of both aortic and tricuspid valves; Z79.82 Long term (current) use of aspirin; Z79.899 Other long term (current) drug therapy; Z95.5 Presence of coronary angioplasty implant and graft; Z91.14 Patient's other noncompliance with medication regimen
CPT/HCPCS: 71045; 78452; 80053; 80061; 83735; 83880; 84484 ×2; 85025; 93005; 93017; 93306; 94640 ×3; 94664; 94760; 96365; 96372; 99285; A9500; G0378 ×3; 36415; J1650; J2785; J3475; J7510; J7620

== ENCOUNTER 2022-03-06 01:43 | Emergency (ER) | payer MEDICARE ==
[2022-03-06 02:31] LABS: #Eosinphils 0.5 thou/uL (0.0-0.7); #Lymphocytes 1.6 thou/uL (1.20-3.40); #Monocytes 0.5 thou/uL (0.11-0.59); #Neutrophils 5.5 thou/uL (1.40-6.50); %Basophils 0.2 % (0.0-1.0); %Eosinophils 6.6 % (0.0-10.0); %Lymphocytes 19.3 % (21.0-51.0); %Monocytes 6.5 % (0.0-10.0); %Neutrophils 67.4 % (42.0-75.0); Mean Corpuscular HGB CONC 33.1 g/dL (32.0-36.0); Mean Corpuscular Hemoglobin 30.1 pg (27.0-31.0); Mean Corpuscular Volume 90.9 fL (78.0-98.0); Mean Platelet Volume 7.2 fL (7.4-10.4); Platelet Count 329 thou/uL (130-400); RBC Distribution Width 13.6 % (11.5-14.5); Red Blood Cell (RBC) Count 5.64 mill/uL (4.70-6.10); White Blood Cell (WBC) Count 8.1 thou/uL (4.8-10.8)
[2022-03-06 02:54] LABS: ALT (SGPT) 15 U/L (8-55); AST (SGOT) 16 U/L (5-34); Albumin 3.9 g/dL (3.4-4.8); Alkaline Phosphatase 84 U/L (40-110); Anion Gap 12 mmol/L (10-20); BUN (Urea Nitrogen) 16 mg/dL (8.4-25.7); Bilirubin, Total 0.5 mg/dL (0.2-1.2); Calc. Creatinine Clearance 0 mL/min (70-130); Carbon Dioxide 27 mmol/L (23-31); Chloride 104 mmol/L (98-107); Globulin 2.7 g/dL (2.4-3.5); Glucose 124 mg/dL (80-115); Protein, Total 6.6 g/dL (5.8-8.1); Sodium 139 mmol/L (136-145)
== END 2022-03-06 03:42 | disposition home or self-care (01) ==
LOC: ERS 01:43
DX: J44.1 Chronic obstructive pulmonary disease with (acute) exacerbation (principal); I10 Essential (primary) hypertension; J44.9 Chronic obstructive pulmonary disease, unspecified; I25.2 Old myocardial infarction; F17.210 Nicotine dependence, cigarettes, uncomplicated; Z79.899 Other long term (current) drug therapy
CPT/HCPCS: 36415; 71045; 80053; 83880; 84484; 85025; 93005; 94640; J7620

== ENCOUNTER 2022-03-21 12:36 | Emergency (ER) | payer MEDICARE ==
[2022-03-21 13:15] LABS: #Eosinphils 0.5 thou/uL (0.0-0.7); #Lymphocytes 1.8 thou/uL (1.20-3.40); #Monocytes 0.5 thou/uL (0.11-0.59); #Neutrophils 5.9 thou/uL (1.40-6.50); %Basophils 0.5 % (0.0-1.0); %Eosinophils 5.7 % (0.0-10.0); %Lymphocytes 20.4 % (21.0-51.0); %Monocytes 6.1 % (0.0-10.0); %Neutrophils 67.4 % (42.0-75.0); Hemoglobin 17.5 g/dL (14.0-18.0); Mean Corpuscular HGB CONC 31.6 g/dL (32.0-36.0); Mean Corpuscular Hemoglobin 29.2 pg (27.0-31.0); Mean Corpuscular Volume 92.3 fL (78.0-98.0); Mean Platelet Volume 7.4 fL (7.4-10.4); Platelet Count 321 thou/uL (130-400); RBC Distribution Width 13.1 % (11.5-14.5); White Blood Cell (WBC) Count 8.8 thou/uL (4.8-10.8)
[2022-03-21 13:43] LABS: ALT (SGPT) 14 U/L (8-55); AST (SGOT) 14 U/L (5-34); Albumin 3.9 g/dL (3.4-4.8); Alkaline Phosphatase 88 U/L (40-110); Anion Gap 14 mmol/L (10-20); BUN (Urea Nitrogen) 17 mg/dL (8.4-25.7); Bilirubin, Total 1.4 mg/dL (0.2-1.2); Calc. Creatinine Clearance 0 mL/min (70-130); Calcium 9.5 mg/dL (7.8-10.44); Carbon Dioxide 31 mmol/L (23-31); Chloride 96 mmol/L (98-107); Globulin 3.3 g/dL (2.4-3.5); Glucose 108 mg/dL (80-115); Protein, Total 7.2 g/dL (5.8-8.1); Sodium 137 mmol/L (136-145)
== END 2022-03-21 15:51 | disposition home or self-care (01) ==
LOC: ERS 12:36
DX: J44.1 Chronic obstructive pulmonary disease with (acute) exacerbation (principal); I10 Essential (primary) hypertension; J44.9 Chronic obstructive pulmonary disease, unspecified; I25.2 Old myocardial infarction; F17.210 Nicotine dependence, cigarettes, uncomplicated; Z79.899 Other long term (current) drug therapy
CPT/HCPCS: 36415; 71045; 80053; 84484; 85025; 93005; 94640; J7620

== ENCOUNTER 2022-03-22 03:55 | Observation (INO) | payer MEDICARE ==
[2022-03-22] MEDS ORDERED: methylPREDNISolone Sod Succ/PF 125 MG/2 ML VIAL ONE (04:07)
[2022-03-22] MEDS ORDERED: Ipratropium Bromide 2.5 ml Neb ONE ×2 (04:07→05:03)
[2022-03-22] MEDS ORDERED: Albuterol Sulfate 2.5 mg/0.5 ml Neb ONE ×2 (04:07→05:03)
[2022-03-22] MEDS ORDERED: Aspirin Chewable 81 MG TAB ONE (04:14)
[2022-03-22 04:30] LABS: #Basophils 0.1 thou/uL (0.0-0.2); #Eosinphils 0.7 thou/uL (0.0-0.7); #Lymphocytes 1.2 thou/uL (1.20-3.40); #Monocytes 0.5 thou/uL (0.11-0.59); #Neutrophils 9.9 thou/uL (1.40-6.50); %Basophils 0.9 % (0.0-1.0); %Eosinophils 5.4 % (0.0-10.0); %Lymphocytes 9.4 % (21.0-51.0); %Neutrophils 80.3 % (42.0-75.0); Hemoglobin 16.4 g/dL (14.0-18.0); Mean Corpuscular HGB CONC 32.9 g/dL (32.0-36.0); Mean Corpuscular Hemoglobin 30.1 pg (27.0-31.0); Mean Corpuscular Volume 91.5 fL (78.0-98.0); Mean Platelet Volume 7.3 fL (7.4-10.4); Platelet Count 328 thou/uL (130-400); RBC Distribution Width 13.1 % (11.5-14.5); Red Blood Cell (RBC) Count 5.43 mill/uL (4.70-6.10); White Blood Cell (WBC) Count 12.3 thou/uL (4.8-10.8)
[2022-03-22 04:53] LABS: ALT (SGPT) 13 U/L (8-55); AST (SGOT) 14 U/L (5-34); Albumin 3.7 g/dL (3.4-4.8); Alkaline Phosphatase 84 U/L (40-110); Anion Gap 13 mmol/L (10-20); BUN (Urea Nitrogen) 20 mg/dL (8.4-25.7); Bilirubin, Total 0.8 mg/dL (0.2-1.2); Calc. Creatinine Clearance 0 mL/min (70-130); Carbon Dioxide 31 mmol/L (23-31); Chloride 97 mmol/L (98-107); Glucose 122 mg/dL (80-115); Lipase 17 U/L (8-78); Potassium 3.7 mmol/L (3.5-5.1); Protein, Total 6.7 g/dL (5.8-8.1); Sodium 137 mmol/L (136-145)
[2022-03-22] MEDS ORDERED: Magnesium 2 GM/50 ML BAG (IN WATER) ONE (05:26)
[2022-03-22 06:45] VITALS: BMI 29.0
[2022-03-22] MEDS ORDERED: Ondansetron PF 4 MG/2 ML Vial IVP PRN (07:13)
[2022-03-22] MEDS ORDERED: Ondansetron ODT 4 MG TAB PO PRN (07:14)
[2022-03-22] MEDS ORDERED: Acetaminophen 325 MG TAB PO PRN (07:14)
[2022-03-22] MEDS ORDERED: Senokot S 8.6-50 MG TAB PO PRN (07:50)
[2022-03-22] MEDS ORDERED: Nicotine 14 MG PATCH TD PRN (07:50)
[2022-03-22] MEDS: Enoxaparin Sodium 40 MG/0.4 ML SYRINGE SC SCH (09:17)
[2022-03-22] MEDS: Doxycycline 100 MG CAP PO SCH ×2 (09:17→20:34)
[2022-03-22] MEDS: Amlodipine 10 MG TAB PO SCH (09:17)
[2022-03-22] MEDS: Carvedilol 6.25 MG TAB PO SCH (09:17)
[2022-03-22] MEDS: Aspirin 81 mg Enteric Coated Tablet PO SCH (09:17)
[2022-03-22 12:09] LABS: SARS-CoV-2 PCR by NAA Not Detected (NotDetected)
[2022-03-22] MEDS: methylPREDNISolone Sod Succ 40 MG VIAL IVP SCH (16:29)
[2022-03-22] MEDS: Mometasone/Formoterol 200/5 60 PUFF INH SCH (18:53)
[2022-03-22] MEDS ORDERED: Atorvastatin Calcium 40 MG TAB PO SCH (21:00)
[2022-03-23] MEDS: methylPREDNISolone Sod Succ 40 MG VIAL IVP SCH (03:36)
[2022-03-23] MEDS: Mometasone/Formoterol 200/5 60 PUFF INH SCH (07:00)
[2022-03-23] MEDS: Carvedilol 6.25 MG TAB PO SCH (08:47)
[2022-03-23] MEDS: Aspirin 81 mg Enteric Coated Tablet PO SCH (08:47)
[2022-03-23] MEDS: Enoxaparin Sodium 40 MG/0.4 ML SYRINGE SC SCH (08:47)
[2022-03-23] MEDS: Doxycycline 100 MG CAP PO SCH (08:47)
[2022-03-23] MEDS: Amlodipine 10 MG TAB PO SCH (08:47)
[2022-03-23 12:21] VITALS: BP 117/65; TEMP 98
== END 2022-03-23 13:41 | disposition home or self-care (01) ==
LOC: ERS 03:55 → T4-A 06:00
PROVIDERS: ADMIT Internal Medicine; ATTEND Internal Medicine
DX: J44.1 Chronic obstructive pulmonary disease with (acute) exacerbation (principal); J96.01 Acute respiratory failure with hypoxia; I10 Essential (primary) hypertension; E78.5 Hyperlipidemia, unspecified; I25.10 Atherosclerotic heart disease of native coronary artery without angina pectoris; F17.210 Nicotine dependence, cigarettes, uncomplicated; I25.2 Old myocardial infarction; K21.9 Gastro-esophageal reflux disease without esophagitis; Z86.16 Personal history of COVID-19; Z91.14 Patient's other noncompliance with medication regimen; Z79.899 Other long term (current) drug therapy; Z95.5 Presence of coronary angioplasty implant and graft; Z20.822 Contact with and (suspected) exposure to COVID-19
CPT/HCPCS: 71045; 80053; 83690; 83880; 84484; 85025; 93005; 94640 ×4; 96365; 96375; 99285; U0003; U0005; 36415; J1650; J2920; J2930; J3475; J7611; J7620

== ENCOUNTER 2022-04-06 03:40 | Emergency (ER) | payer MEDICARE ==
[2022-04-06] MEDS ORDERED: Magnesium 2 GM/50 ML BAG (IN WATER) ONE (04:26)
[2022-04-06 04:49] LABS: #Basophils 0.1 thou/uL (0.0-0.2); #Eosinphils 0.5 thou/uL (0.0-0.7); #Lymphocytes 1.2 thou/uL (1.20-3.40); #Monocytes 0.3 thou/uL (0.11-0.59); %Basophils 1.2 % (0.0-1.0); %Eosinophils 4.9 % (0.0-10.0); %Monocytes 3.2 % (0.0-10.0); %Neutrophils 78.7 % (42.0-75.0); Hemoglobin 17.4 g/dL (14.0-18.0); Mean Corpuscular HGB CONC 32.7 g/dL (32.0-36.0); Mean Corpuscular Hemoglobin 30.5 pg (27.0-31.0); Mean Corpuscular Volume 93.4 fL (78.0-98.0); Mean Platelet Volume 7.9 fL (7.4-10.4); Platelet Count 280 thou/uL (130-400); Red Blood Cell (RBC) Count 5.69 mill/uL (4.70-6.10); White Blood Cell (WBC) Count 10.1 thou/uL (4.8-10.8)
[2022-04-06 05:05] LABS: ALT (SGPT) 16 U/L (8-55); AST (SGOT) 13 U/L (5-34); Albumin 3.6 g/dL (3.4-4.8); Alkaline Phosphatase 75 U/L (40-110); Anion Gap 12 mmol/L (10-20); BUN (Urea Nitrogen) 21 mg/dL (8.4-25.7); Bilirubin, Total 0.6 mg/dL (0.2-1.2); Calc. Creatinine Clearance 0 mL/min (70-130); Calcium 9.2 mg/dL (7.8-10.44); Carbon Dioxide 31 mmol/L (23-31); Chloride 101 mmol/L (98-107); Globulin 2.9 g/dL (2.4-3.5); Glucose 117 mg/dL (80-115); Potassium 3.4 mmol/L (3.5-5.1); Protein, Total 6.5 g/dL (5.8-8.1); Sodium 141 mmol/L (136-145)
== END 2022-04-06 05:38 | disposition home or self-care (01) ==
LOC: ERS 03:40
DX: J44.1 Chronic obstructive pulmonary disease with (acute) exacerbation (principal); I10 Essential (primary) hypertension; I25.2 Old myocardial infarction; K21.9 Gastro-esophageal reflux disease without esophagitis; F17.210 Nicotine dependence, cigarettes, uncomplicated; Z95.5 Presence of coronary angioplasty implant and graft; Z79.899 Other long term (current) drug therapy
CPT/HCPCS: 36415; 71045; 80053; 83880; 84484; 85025; 93005; 96365; J3475

== ENCOUNTER 2022-04-16 05:05 | Emergency (ER) | payer MEDICARE ==
[2022-04-16 06:03] LABS: #Basophils 0.1 thou/uL (0.0-0.2); #Eosinphils 0.6 thou/uL (0.0-0.7); #Lymphocytes 1.2 thou/uL (1.20-3.40); #Monocytes 0.4 thou/uL (0.11-0.59); #Neutrophils 6.7 thou/uL (1.40-6.50); %Basophils 0.6 % (0.0-1.0); %Eosinophils 6.3 % (0.0-10.0); %Lymphocytes 13.8 % (21.0-51.0); %Neutrophils 75.3 % (42.0-75.0); Hemoglobin 17.5 g/dL (14.0-18.0); Mean Corpuscular Hemoglobin 29.8 pg (27.0-31.0); Mean Corpuscular Volume 93.2 fL (78.0-98.0); Mean Platelet Volume 7.1 fL (7.4-10.4); Platelet Count 328 thou/uL (130-400); RBC Distribution Width 13.3 % (11.5-14.5); Red Blood Cell (RBC) Count 5.89 mill/uL (4.70-6.10); White Blood Cell (WBC) Count 8.9 thou/uL (4.8-10.8)
[2022-04-16 06:25] LABS: ALT (SGPT) 16 U/L (8-55); AST (SGOT) 13 U/L (5-34); Albumin 3.6 g/dL (3.4-4.8); Alkaline Phosphatase 69 U/L (40-110); Anion Gap 11 mmol/L (10-20); BUN (Urea Nitrogen) 14 mg/dL (8.4-25.7); Bilirubin, Total 0.7 mg/dL (0.2-1.2); Calc. Creatinine Clearance 0 mL/min (70-130); Calcium 9.1 mg/dL (7.8-10.44); Carbon Dioxide 32 mmol/L (23-31); Chloride 100 mmol/L (98-107); Globulin 2.8 g/dL (2.4-3.5); Glucose 110 mg/dL (80-115); Potassium 3.9 mmol/L (3.5-5.1); Protein, Total 6.4 g/dL (5.8-8.1); Sodium 139 mmol/L (136-145)
== END 2022-04-16 07:10 | disposition home or self-care (01) ==
LOC: ERS 05:05
DX: J44.9 Chronic obstructive pulmonary disease, unspecified (principal); I10 Essential (primary) hypertension; I25.2 Old myocardial infarction; K21.9 Gastro-esophageal reflux disease without esophagitis; F17.210 Nicotine dependence, cigarettes, uncomplicated; Z79.899 Other long term (current) drug therapy
CPT/HCPCS: 36415; 71045; 80053; 83880; 84484; 85025; 93005

== ENCOUNTER 2022-04-20 03:50 | Emergency (ER) | payer MEDICARE ==
[2022-04-20] MEDS ORDERED: Magnesium 2 GM/50 ML BAG (IN WATER) ONE (04:03)
[2022-04-20] MEDS ORDERED: Albuterol Sulfate 1.25 MG/3 ML NEB ONE (04:07)
[2022-04-20] MEDS ORDERED: Albuterol Sulfate 2.5 mg/3 ml Neb ONE (04:11)
[2022-04-20 04:21] LABS: #Basophils 0.1 thou/uL (0.0-0.2); #Eosinphils 0.5 thou/uL (0.0-0.7); #Lymphocytes 2.2 thou/uL (1.20-3.40); #Monocytes 0.7 thou/uL (0.11-0.59); #Neutrophils 6.7 thou/uL (1.40-6.50); %Basophils 1.1 % (0.0-1.0); %Eosinophils 4.8 % (0.0-10.0); %Lymphocytes 21.4 % (21.0-51.0); %Monocytes 6.8 % (0.0-10.0); %Neutrophils 65.9 % (42.0-75.0); Hemoglobin 16.9 g/dL (14.0-18.0); Mean Corpuscular HGB CONC 32.7 g/dL (32.0-36.0); Mean Corpuscular Hemoglobin 30.1 pg (27.0-31.0); Mean Corpuscular Volume 92.2 fL (78.0-98.0); Platelet Count 343 thou/uL (130-400); RBC Distribution Width 13.3 % (11.5-14.5); Red Blood Cell (RBC) Count 5.62 mill/uL (4.70-6.10); White Blood Cell (WBC) Count 10.2 thou/uL (4.8-10.8)
[2022-04-20 04:47] LABS: ALT (SGPT) 17 U/L (8-55); AST (SGOT) 13 U/L (5-34); Albumin 3.6 g/dL (3.4-4.8); Alkaline Phosphatase 72 U/L (40-110); Anion Gap 14 mmol/L (10-20); BUN (Urea Nitrogen) 12 mg/dL (8.4-25.7); Bilirubin, Total 0.6 mg/dL (0.2-1.2); Calc. Creatinine Clearance 0 mL/min (70-130); Calcium 9.1 mg/dL (7.8-10.44); Carbon Dioxide 28 mmol/L (23-31); Chloride 100 mmol/L (98-107); Globulin 2.5 g/dL (2.4-3.5); Glucose 116 mg/dL (80-115); Potassium 3.9 mmol/L (3.5-5.1); Protein, Total 6.1 g/dL (5.8-8.1); Sodium 138 mmol/L (136-145)
== END 2022-04-20 06:57 | disposition home or self-care (01) ==
LOC: ERS 03:50
DX: J44.1 Chronic obstructive pulmonary disease with (acute) exacerbation (principal); I10 Essential (primary) hypertension; J44.9 Chronic obstructive pulmonary disease, unspecified; I25.2 Old myocardial infarction; K21.9 Gastro-esophageal reflux disease without esophagitis; F17.210 Nicotine dependence, cigarettes, uncomplicated
CPT/HCPCS: 71045; 80053; 83880; 84484; 85025; 93005; 96374; J3475; J7611; J7620

== ENCOUNTER 2022-04-25 04:47 | Emergency (ER) | payer MEDICARE ==
[2022-04-25] MEDS ORDERED: Albuterol Sulfate 2.5 mg/0.5 ml Neb ONE ×2 (05:11→05:55)
== END 2022-04-25 07:05 | disposition home or self-care (01) ==
LOC: ERS 04:47
DX: J44.1 Chronic obstructive pulmonary disease with (acute) exacerbation (principal); I10 Essential (primary) hypertension; K21.9 Gastro-esophageal reflux disease without esophagitis; J45.909 Unspecified asthma, uncomplicated; F17.210 Nicotine dependence, cigarettes, uncomplicated; I25.2 Old myocardial infarction; Z95.5 Presence of coronary angioplasty implant and graft
CPT/HCPCS: 71045; 93005; J7611

== ENCOUNTER 2022-04-28 07:24 | Emergency (ER) | payer MEDICARE ==
[2022-04-28] MEDS ORDERED: Dexamethasone 10 MG/ML VIAL ONE (07:41)
== END 2022-04-28 08:00 | disposition home or self-care (01) ==
LOC: ERS 07:24
DX: J44.1 Chronic obstructive pulmonary disease with (acute) exacerbation (principal); I10 Essential (primary) hypertension; J44.9 Chronic obstructive pulmonary disease, unspecified; I25.2 Old myocardial infarction; F17.210 Nicotine dependence, cigarettes, uncomplicated
CPT/HCPCS: 99284; J1100

== ENCOUNTER 2022-05-08 23:42 | Emergency (ER) | payer MEDICARE ==
[2022-05-09 00:47] LABS: #Eosinphils 0.3 thou/uL (0.0-0.7); #Lymphocytes 1.2 thou/uL (1.20-3.40); #Monocytes 0.4 thou/uL (0.11-0.59); #Neutrophils 10.2 thou/uL (1.40-6.50); %Basophils 0.3 % (0.0-1.0); %Eosinophils 2.9 % (0.0-10.0); %Lymphocytes 9.5 % (21.0-51.0); %Monocytes 3.1 % (0.0-10.0); %Neutrophils 84.3 % (42.0-75.0); Mean Corpuscular Hemoglobin 29.8 pg (27.0-31.0); Mean Corpuscular Volume 90.3 fL (78.0-98.0); Mean Platelet Volume 7.3 fL (7.4-10.4); Platelet Count 295 thou/uL (130-400); RBC Distribution Width 12.9 % (11.5-14.5); Red Blood Cell (RBC) Count 5.69 mill/uL (4.70-6.10)
[2022-05-09 01:08] LABS: ALT (SGPT) 10 U/L (8-55); AST (SGOT) 12 U/L (5-34); Albumin 3.7 g/dL (3.4-4.8); Alkaline Phosphatase 84 U/L (40-110); Anion Gap 14 mmol/L (10-20); BUN (Urea Nitrogen) 14 mg/dL (8.4-25.7); Bilirubin, Total 0.9 mg/dL (0.2-1.2); Calc. Creatinine Clearance 0 mL/min (70-130); Calcium 9.1 mg/dL (7.8-10.44); Carbon Dioxide 33 mmol/L (23-31); Chloride 96 mmol/L (98-107); Estimated GFR 76; Globulin 2.5 g/dL (2.4-3.5); Glucose 116 mg/dL (80-115); Potassium 3.6 mmol/L (3.5-5.1); Protein, Total 6.2 g/dL (5.8-8.1); Sodium 139 mmol/L (136-145)
== END 2022-05-09 01:44 | disposition home or self-care (01) ==
LOC: ERS 23:42
DX: J44.1 Chronic obstructive pulmonary disease with (acute) exacerbation (principal); I10 Essential (primary) hypertension; I25.2 Old myocardial infarction; F17.210 Nicotine dependence, cigarettes, uncomplicated; K21.9 Gastro-esophageal reflux disease without esophagitis; Z79.899 Other long term (current) drug therapy
CPT/HCPCS: 36415; 71045; 80053; 83880; 84484; 85025; 93005